=== PATIENT | male | born 1950 | race Caucasian/White ===

== ENCOUNTER 2024-03-14 16:44 | Emergency (ER) | payer MEDICARE, SELFPAY ==
[2024-03-14 17:00] VITALS: BP 164/98; PULSE 74; TEMP 36.6; O2SAT 97; BMI 38.6
--- NOTE | 2024-03-14 17:28 | CT_ITS ---
The [address] [address] Patient Name: GM MCDANIEL MRN: [id number] date: 1950 Sex: M Assigned Patient Location: ER Current Patient Location: ED.MAIN Accession/Order Number: [id number] Exam Date: 03/14/2024 17:42 Report Date: 03/14/2024 19:23 At the request of: JESSICA BLOUNT Procedure: CT abdomen pelvis wo con CT ABDOMEN/PELVIS WITHOUT IV CONTRAST. INDICATION: right flank pain hx of stones COMPARISON: There are no other studies available for comparison. TECHNIQUE: Contiguous axial images were obtained from the lung bases to the pelvic floor without intravenous or oral contrast. Coronal and sagittal reformations are provided. FINDINGS: LOWER LUNGS: Clear. LIVER/BILIARY TREE: No discrete lesion. No intrahepatic ductal dilatation. GALLBLADDER: Status post cholecystectomy.. CBD: Normal CBD. SPLEEN: Normal in size. PANCREAS: No appreciable peripancreatic fluid. No pancreatic ductal dilatation. No discrete lesion. ADRENALS: Normal. KIDNEYS: No hydronephrosis. There are nonobstructing bilateral renal stones measuring up to 5 mm. STOMACH AND BOWEL: Stomach is unremarkable. No dilated bowel loops. There is an inflamed diverticulum in the mid ascending colon. There is short segment thickening of the involved colon. No perforation or abscess. APPENDIX: Normal appendix. PERITONEAL CAVITY: No fluid. No fat stranding. ABDOMINAL WALL: No subcutaneous stranding. No subcutaneous fluid collection. There is a small umbilical hernia containing fat. LYMPH NODES: No mesenteric or retroperitoneal lymphadenopathy by CT criteria. ABDOMINAL AORTA: No aneurysm. PELVIS: No acute abnormality. MUSCULOSKELETAL: No acute osseous abnormality. CT/CT abdomen pelvis wo con IMPRESSION: 1. Acute uncomplicated diverticulitis of the right colon. 2. Bilateral nephrolithiasis. Electronically authenticated by: TREMAYNE HOLLOWAY Date: 03/14/2024 19:23
--- NOTE | 2024-03-14 17:28 | ECG_ITS ---
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
[2024-03-14 18:13] LABS: Alanine Aminotransferase 24 U/L (16-63); Albumin Globulin Ratio 0.7; Albumin Level 2.9 g/dL (3.4-5.0); Alkaline Phosphatase 69 U/L (46-116); Anion Gap 10.2; Aspartate Amino Transferase 16 U/L (15-37); BUN Creatinine Ratio 17.9; Bilirubin Total 2.4 mg/dL (0.2-1.0); Calcium 8.6 mg/dL (8.5-10.1); Carbon Dioxide 26.1 mmol/L (21.0-32.0); Chloride 98 mmol/L (98-107); Estimated GFR (African America >60 (>=60); Estimated GFR (Non-African Ame >60 (>=60); Glucose 102 mg/dL (74-106); Potassium 3.3 mmol/L (3.5-5.1); Sodium 131 mmol/L (136-145); Total Protein 6.9 g/dL (6.4-8.2); Troponin I High Sensitivity 4.7 pg/mL (4.0-76.1)
--- NOTE | 2024-03-14 18:24 | ED_ITS ---
HPI - Abdominal Pain General Chief Complaint: Abdominal Pain Stated Complaint: Flank Pain Right Side Time Seen by Provider: 03/14/24 17:15 Source: patient Mode of arrival: walk-in Limitations: no limitations History of Present Illness HPI narrative: The patient coming to us with a 4 days history of right flank pain, he mentioned that the flank pain radiate to his groin but mostly in the left side although his pain is in the right side He is not complaining any nausea vomiting or any burning with urination Patient give the pain 8 out of 10 and mentioned that he did not take anything for it And the pain comes and goes for the last 24 hours The patient mentioned that he have a history of kidney stone Related Data Home Medications ?Medication ?Instructions ?Recorded ?Confirmed hydrochlorothiazide 25 mg tablet 25 mg PO DAILY 03/14/24 03/14/24 irbesartan 300 mg tablet 300 mg PO DAILY 03/14/24 03/14/24 Allergies Allergy/AdvReac Type Severity Reaction Status Date / Time No Known Drug Allergies Allergy Verified 03/14/24 16:59 Review of Systems ROS Status of ROS 10 or more systems reviewed and unremark able except as noted in history and below Exam Narrative Exam Narrative: Nurses notes and vital signs reviewed and patient is not hypoxic. General: Well-appearing and in no apparent distress. Skin: Warm, dry, no pallor noted. No rash. Head: Normocephalic, atraumatic. Neck: Supple, non-tender. Eye: Pupils are equal, round and EOMI. No scleral icterus. Ears, Nose, Mouth, and Throat: TM are clear, no nasal mucosal hypertrophy. Oral mucosa is moist, no posterior oropharynx erythema, uvula is mid-line Cardiovascular: Regular Rate and Rhythm without murmur, gallop or rub. Respiratory: No accessory muscle use or respiratory distress. Lungs are clear to auscultation, no wheezing, rales or rhonchi Chest Wall: no tenderness Back: No midline thoracic or lumbar vertebral tenderness. No CVA tenderness Musculoskeletal: normal ROM, no calf or popliteal tenderness, no lower extremity edema/swelling GI: Abdomen is soft, non-distended. Normal bowel sounds. No masses appreciated. The patient main pain is mostly at the mid axillary line on the right side Neurological: A&O x4. No cranial nerve dysfunction observed. No truncal ataxia. Moves all extremities. Sensation intact. Psychiatric: Cooperative and interactive. Normal mood and affect. Constitutional Vital Signs, click to edit/add: Last Vital Signs Temp 97.8 F 03/14/24 17:00 Pulse 74 03/14/24 17:00 Resp 18 03/14/24 17:00 BP 164/98 H 03/14/24 17:00 Pulse Ox 97 03/14/24 17:00 O2 Del Method Room Air 03/14/24 17:00 Course Vital Signs Vital signs: Vital Signs Temperature 97.8 F 03/14/24 17:00 Pulse Rate 74 03/14/24 17:00 Respiratory Rate 18 03/14/24 17:00 Blood Pressure 164/98 H 03/14/24 17:00 Pulse Oximetry 97 03/14/24 17:00 Oxygen Delivery Method Room Air 03/14/24 17:00 Temperature 97.8 F 03/14/24 17:00 Pulse Rate 74 03/14/24 17:00 Respiratory Rate 18 03/14/24 17:00 Blood Pressure 164/98 H 03/14/24 17:00 Pulse Oximetry 97 03/14/24 17:00 Oxygen Delivery Method Room Air 03/14/24 17:00 MDM - Abdominal Pain MDM Narrative Medical decision making narrative: CBC chemistry as well as urinalysis and CAT scan ordered and the patient care awaiting the results of the above-mentioned workup will be transferred to Dr. Loza Lab Data Labs: Lab Results 03/14/24 Range/Units 17:38 Sodium 131 L (136-145) mmol/L Potassium 3.3 L (3.5-5.1) mmol/L Chloride 98 (98-107) mmol/L Carbon Dioxide 26.1 (21.0-32.0) mmol/L Anion Gap 10.2 BUN 15.0 (7.0-18.0) mg/dL Creatinine 0.84 (0.70-1.30) mg/dL Est GFR ( Amer) >60 (>=60) Est GFR (Non-Af Amer) >60 (>=60) BUN/Creatinine Ratio 17.9 Glucose 102 (74-106) mg/dL Calcium 8.6 (8.5-10.1) mg/dL Total Bilirubin 2.4 H (0.2-1.0) mg/dL AST 16 (15-37) U/L ALT 24 (16-63) U/L Alkaline Phosphatase 69 (46-116) U/L Troponin I High Sens 4.7 (4.0-76.1) pg/mL Total Protein 6.9 (6.4-8.2) g/dL Albumin 2.9 L (3.4-5.0) g/dL Globulin 4.0 g/dL Albumin/Globulin Ratio 0.7 Discharge Plan Discharge Patient Disposition: Still a Patient
[2024-03-14 19:17] VITALS: BP 128/70; PULSE 62; O2SAT 97
[2024-03-14 19:31] LABS: Bilirubin Urine NEGATIVE (NEGATIVE); Blood Urine NEGATIVE (NEGATIVE); Clarity Urine CLEAR (CLEAR); Color Urine YELLOW (YELLOW); Glucose Urine UA NEGATIVE (NEGATIVE); Ketones Urine TRACE mg/dL (NEGATIVE); Leukocyte Esterase Urine NEGATIVE (NEGATIVE); Nitrite Urine NEGATIVE (NEGATIVE); Protein Urine NEGATIVE (NEG/TRACE)
[2024-03-14 19:34] LABS: Urine Microscopic Indicated NO
--- NOTE | 2024-03-14 19:39 | PC.NURSE ---
Ambulates to and from [place] without difficulty. U/a obtained and taken to lab, urine dark yellow in color, denies any discomfort with urination.
--- NOTE | 2024-03-14 19:48 | ED_ITS ---
HPI - Abdominal Pain General Chief Complaint: Abdominal Pain Stated Complaint: Flank Pain Right Side Time Seen by Provider: 03/14/24 17:15 Source: patient Mode of arrival: walk-in Limitations: no limitations History of Present Illness HPI narrative: 73-year-old male presented to the emergency department and was initially seen by Dr. Hinkle. The patient was signed out to me after discussing the case with her thoroughly. Please see her full history and physical exam. Related Data Home Medications ?Medication ?Instructions ?Recorded ?Confirmed hydrochlorothiazide 25 mg tablet 25 mg PO DAILY 03/14/24 03/14/24 irbesartan 300 mg tablet 300 mg PO DAILY 03/14/24 03/14/24 Previous Rx's ?Medication ?Instructions ?Recorded ciprofloxacin HCl 500 mg tablet 500 mg PO Q12H #20 tabs 03/14/24 (Cipro) metronidazole 500 mg tablet 500 mg PO TID #30 tabs 03/14/24 Allergies Allergy/AdvReac Type Severity Reaction Status Date / Time No Known Drug Allergies Allergy Verified 03/14/24 16:59 Exam Constitutional Vital Signs, click to edit/add: Last Vital Signs Temp 97.8 F 03/14/24 17:00 Pulse 62 03/14/24 19:17 Resp 18 03/14/24 19:17 BP 128/70 03/14/24 19:17 Pulse Ox 97 03/14/24 19:17 O2 Del Method Room Air 03/14/24 19:17 Course Vital Signs Vital signs: Vital Signs Temperature 97.8 F 03/14/24 17:00 Pulse Rate 74 03/14/24 17:00 Respiratory Rate 18 03/14/24 17:00 Blood Pressure 164/98 H 03/14/24 17:00 Pulse Oximetry 97 03/14/24 17:00 Oxygen Delivery Method Room Air 03/14/24 17:00 Temperature 97.8 F 03/14/24 17:00 Pulse Rate 62 03/14/24 19:17 Respiratory Rate 18 03/14/24 19:17 Blood Pressure 128/70 03/14/24 19:17 Pulse Oximetry 97 03/14/24 19:17 Oxygen Delivery Method Room Air 03/14/24 19:17 MDM - Abdominal Pain MDM Narrative Medical decision making narrative: CT per radiologist shows right sided diverticulitis. He does not require admission to the hospital and has was started on Cipro and Flagyl here and prescribed same. Follow-up with his PCP in a week. Treatment diagnosis and follow-up were discussed with the patient Differential Diagnosis Differential diagnosis: Likely abdominal pain, acute appendicitis, calculus of kidney, constipation, diverticulitis and small bowel obstruction Lab Data Attestation: I reviewed the patient's lab results. Labs: Lab Results 03/14/24 03/14/24 Range/Units 17:38 19:15 Sodium 131 L (136-145) mmol/L Potassium 3.3 L (3.5-5.1) mmol/L Chloride 98 (98-107) mmol/L Carbon Dioxide 26.1 (21.0-32.0) mmol/L Anion Gap 10.2 BUN 15.0 (7.0-18.0) mg/dL Creatinine 0.84 (0.70-1.30) mg/dL Est GFR ( Amer) >60 (>=60) Est GFR (Non-Af Amer) >60 (>=60) BUN/Creatinine Ratio 17.9 Glucose 102 (74-106) mg/dL Calcium 8.6 (8.5-10.1) mg/dL Total Bilirubin 2.4 H (0.2-1.0) mg/dL AST 16 (15-37) U/L ALT 24 (16-63) U/L Alkaline Phosphatase 69 (46-116) U/L Troponin I High Sens 4.7 (4.0-76.1) pg/mL Total Protein 6.9 (6.4-8.2) g/dL Albumin 2.9 L (3.4-5.0) g/dL Globulin 4.0 g/dL Albumin/Globulin Ratio 0.7 Urine Color Yellow (YELLOW) Urine Clarity Clear (CLEAR) Urine pH 6.0 (5.0-9.0) Ur Specific [place] 1.020 (1.005-1.025) Urine Protein Negative (NEG/TRACE) mg/dL Urine Glucose (UA) Negative (NEGATIVE) mg/dL Urine Ketones Trace A (NEGATIVE) mg/dL Urine Occult Blood Negative (NEGATIVE) Urine Nitrite Negative (NEGATIVE) Urine Bilirubin Negative (NEGATIVE) Urine Urobilinogen 2.0 A (0.2-1.0) EU/dL Ur Leukocyte Esterase Negative (NEGATIVE) Imaging Data CT scan - abdomen: Radiologist's impression: ITS Impressions Abdomen/Pelvis CT 03/14/24 17:28 IMPRESSION: 1. Acute uncomplicated diverticulitis of the right colon. 2. Bilateral nephrolithiasis. Electronically authenticated by: TREMAYNE HOLLOWAY Date: 03/14/2024 19:23 Discharge Plan Discharge Stand Alone Forms: Portal Instructions Chief Complaint: Abdominal Pain Clinical Impression: Diverticulitis Patient Disposition: Home, Self-Care Time of Disposition Decision: 19:46 Condition: Good Mode of Transportation: Private Vehicle Prescriptions / Home Meds: New metronidazole 500 mg tablet 500 mg PO TID Qty: 30 0RF ciprofloxacin HCl [Cipro] 500 mg tablet 500 mg PO Q12H Qty: 20 0RF No Action irbesartan 300 mg tablet 300 mg PO DAILY hydrochlorothiazide 25 mg tablet 25 mg PO DAILY Print Language: Salvadorean Instructions: Diverticulitis (ED) Additional Instructions: Follow-up with Dr. Chopra in 1 week. Return to ED if symptoms worsen. Referrals: MAILE CHOPRA [Primary Care Provider] - 1 week
[2024-03-14] MEDS: METRONIDAZOLE 250 MG TABLET 500 MG PO (20:00)
[2024-03-14] MEDS: CIPROFLOXACIN HCL 500 MG TABLET PO (20:00)
== END 2024-03-14 20:04 | disposition home or self-care (01) ==
PROVIDERS: Emergency Medicine; Emergency Provider Emergency Medicine; PCP Internal Medicine
DX: K57.32 Diverticulitis of large intestine without perforation or abscess without bleeding (principal)
CPT/HCPCS: 36415; 74176; 80053; 81003; 84484; 93005; 99285

== ENCOUNTER 2024-08-30 10:38 | Outpatient (OUT) | payer MEDICARE, SELFPAY ==
[2024-08-30 11:08] LABS: Basophils Percent Auto 0.6 % (0.2-2.0); Eosinophils Absolute Auto 0.7 10^3/uL (0.0-0.7); Eosinophils Percent Auto 13.2 % (0.9-7.0); Hematocrit 47.3 % (42.0-54.0); Hemoglobin 16.8 g/dL (14.0-18.0); Immature Granulocytes Abs Auto 0.01 10^3/uL (0.00-0.03); Immature Granulocytes Pct Auto 0.2 % (0.0-0.5); Lymphocytes Absolute Auto 1.2 10^3/uL (1.2-3.8); Lymphocytes Percent Auto 21.7 % (20.5-60.0); Mean Corpuscular HGB Conc 35.5 g/dL (29.9-35.2); Mean Corpuscular Hemoglobin 34.6 pg (25.9-34.0); Mean Corpuscular Volume 97.5 fL (80.0-94.0); Mean Platelet Volume 10.8 fL (9.5-13.5); Monocytes Absolute Auto 0.5 10^3/uL (0.3-0.8); Monocytes Percent Auto 8.5 % (1.7-12.0); Neutrophils Percent Auto 55.8 % (43.0-75.0); Platelet Count 179 10^3/uL (150-450); Red Blood Count 4.85 10^6/uL (4.70-6.10); Red Cell Distribution Width 13.2 % (11.0-15.0); White Blood Count 5.3 10^3/uL (4.0-11.0)
[2024-08-30 11:25] LABS: Alanine Aminotransferase 35 U/L (16-63); Albumin Globulin Ratio 0.9; Albumin Level 3.5 g/dL (3.4-5.0); Alkaline Phosphatase 75 U/L (46-116); Anion Gap 12.9; Aspartate Amino Transferase 24 U/L (15-37); BUN Creatinine Ratio 13.2; Bilirubin Total 1.1 mg/dL (0.2-1.0); Calcium 8.5 mg/dL (8.5-10.1); Carbon Dioxide 28.2 mmol/L (21.0-32.0); Chloride 103 mmol/L (98-107); Chol HDL Ratio 2.5; Cholesterol 145 mg/dL (<=200); Estimated GFR (African America >60 (>=60 mL/min/1.73m^2); Estimated GFR (Non-African Ame >60 (>=60 mL/min/1.73m^2); Globulin 4.1 g/dL; Glucose 114 mg/dL (74-106); HDL Cholesterol 59 mg/dL (40-60); LDL Cholesterol Calculated 74.4 mg/dL; Potassium 4.1 mmol/L (3.5-5.1); Sodium 140 mmol/L (136-145); Total Protein 7.6 g/dL (6.4-8.2); Triglycerides 58 mg/dL (<=150); VLDL CHOLESTEROL 11.6 mg/dL
== END 2024-08-30 10:39 | disposition home or self-care (01) ==
LOC: LAB 10:42
PROVIDERS: PCP Internal Medicine; Visit Provider Physician Assistant
DX: Z00.00 Encounter for general adult medical examination without abnormal findings (principal); I10 Essential (primary) hypertension; E55.9 Vitamin D deficiency, unspecified
CPT/HCPCS: 36415; 80053; 80061; 82306; 85025

== ENCOUNTER 2024-09-26 22:57 | Emergency (ER) | payer MEDICARE, SELFPAY ==
[2024-09-26 23:04] VITALS: BP 186/85; PULSE 89; TEMP 36.4; O2SAT 95; BMI 39.1
--- NOTE | 2024-09-26 23:15 | ED_ITS ---
HPI HPI - General Adult General Chief complaint: Recheck/Abnormal Lab/Rx Stated complaint: POST OPERATIVE BLEEDING Time Seen by Provider: 09/26/24 23:02 Source: patient Mode of arrival: walk-in Limitations: no limitations History of Present Illness HPI narrative: This 74-year-old male who is not on blood thinners presents for evaluation of bleeding from an incision in his back. The patient recently had a biopsy done of a mass on his back that turned out to be malignant melanoma. He went for resection of the melanoma on his back and on the right side of his neck and they also took out lymph nodes from both axilla. He had some bleeding from the incision prior to being released that they used silver nitrate on but he is still having some ongoing bleeding from the incision site in his back. He denies any dizziness or shortness of breath. He has not had any fever. Related Data Home Medications ?Medication ?Instructions ?Recorded ?Confirmed hydrochlorothiazide 25 mg tablet 25 mg PO DAILY 03/14/24 03/14/24 irbesartan 300 mg tablet 300 mg PO DAILY 03/14/24 03/14/24 Previous Rx's ?Medication ?Instructions ?Recorded ciprofloxacin HCl 500 mg tablet 500 mg PO Q12H #20 tabs 03/14/24 (Cipro) metronidazole 500 mg tablet 500 mg PO TID #30 tabs 03/14/24 Allergies Allergy/AdvReac Type Severity Reaction Status Date / Time No Known Drug Allergies Allergy Verified 09/26/24 23:04 Opioid HPI Opioid Management Most Recent Opioid Data: No Data to Display Review of Systems ROS Status of ROS 10 or more systems reviewed and unremark able except as noted in history and below PFSH PFSH Social History Little interest or pleasure in doing things: not at all Feeling down, depressed, or hopeless: not at all Exam Narrative Exam Narrative: Vital signs and Nursing Notes reviewed: Patient is afebrile with a normal pulse, blood pressure is elevated at 186/85, he is not hypoxic with pulse ox of 95% on room air General: Awake, alert, oriented, no acute distress, lying comfortably on the stretcher HEENT: Normocephalic atraumatic, mucous membranes are moist and pink, eyes are clear, normal conjunctiva, vision is grossly intact Chest: Lungs are clear to auscultation with expiratory wheezes greatest in the right upper lobe CVS: Regular rate and rhythm S1-S2, no murmurs rubs or gallops, pulses are brisk and equal bilaterally ABD: Soft, nondistended, nontender, no rebound guarding or rigidity, bowel so unds are normal, no pulsatile masses appreciated Extremities: Moving all extremities, no lower extremity tenderness or swelling noted Skin: There is an approximately 10 cm incision closed with skin adhesive in the midline of the upper thoracic spine. There is some small venous oozing from one of the sites at the proximal portion of the incision. There is no arterial bleeding or purulent drainage. The patient also has incisions in both axilla and one in the soft tissue of the right upper shoulder area - the additional incisions are not bleeding or draining Neuro: No focal deficits Constitutional Vital Signs, click to edit/add: Last Vital Signs Temp 97.6 F 09/26/24 23:04 Pulse 89 09/26/24 23:04 Resp 16 09/26/24 23:04 BP 186/85 H 09/26/24 23:04 Pulse Ox 95 09/26/24 23:04 O2 Del Method Room Air 09/26/24 23:04 Course Vital Signs Vital signs: Vital Signs Temperature 97.6 F 09/26/24 23:04 Pulse Rate 89 09/26/24 23:04 Respiratory Rate 16 09/26/24 23:04 Blood Pressure 186/85 H 09/26/24 23:04 Pulse Oximetry 95 09/26/24 23:04 Oxygen Delivery Method Room Air 09/26/24 23:04 Temperature 97.6 F 09/26/24 23:04 Pulse Rate 89 09/26/24 23:04 Respiratory Rate 16 09/26/24 23:04 Blood Pressure 186/85 H 09/26/24 23:04 Pulse Oximetry 95 09/26/24 23:04 Oxygen Delivery Method Room Air 09/26/24 23:04 Medical Decision Making MDM Narrative Medical decision making narrative: This 74-year-old male who is not on blood thinners presents for evaluation of bleeding from an upper thoracic incision that was performed earlier today at [facility] for resection of a malignant melanoma. The patient also had a resection of a mass on his right upper shoulder area and either lymph node biopsy or dissection. He presents for evaluation of some venous bleeding from the proximal portion of the thoracic incision. The incisions were closed with Dermabond. There was some mild venous bleeding from the proximal aspect of the incision. There was no sign of any dehiscence or infection. The area was cleaned with saline and hydrogen peroxide and dried and a long piece of Gelfoam was applied topically over the incision site and an ABD pad was applied topically over the Gelfoam. He was reevaluated in 30 minutes. The bleeding has resolved but there is some blood on the Gelfoam and ABD pad. The dressing was reapplied topically and the was given an additional ABD pad to use tomorrow if needed. He was medicated with a dose of [place] as he was discharged home with prescription for tramadol which is not helping his pain. He will be discharged home with 2 additional [place] and a prescription for [place], Zofran and Colace to use as needed for ongoing pain and to prevent constipation from the pain medications. Discharge Plan Discharge Chief Complaint: Recheck/Abnormal Lab/Rx Clinical Impression: Postoperative bleeding from incision Patient Disposition: Home, Self-Care Time of Disposition Decision: 00:08 Condition: Good Prescriptions / Home Meds: No Action irbesartan 300 mg tablet 300 mg PO DAILY hydrochlorothiazide 25 mg tablet 25 mg PO DAILY metronidazole 500 mg tablet 500 mg PO TID Qty: 30 0RF ciprofloxacin HCl [Cipro] 500 mg tablet 500 mg PO Q12H Qty: 20 0RF Print Language: Yoruba Instructions: Skin Adhesive Care (ED) Additional Instructions: You can reapply the top dressing tomorrow if needed for ongoing bleeding but leave the foam dressing that is in place against the incision in place for another 24 hours. Return to the emergency department as needed for ongoing or worsening bleeding, fevers chills additional drainage from the incision sites or any concerns. You can use [place] for pain but do not take it in addition to the tramadol. The pharmacist may not fill your prescription for [place] however you can discussed with him that the tramadol is not helping with your pain. It may help to take the tramadol prescription with you to the pharmacy when you fill your prescription for [place]. Referrals: MAILE CHOPRA [Primary Care Provider] - 1 week Procedures ED Procedure Instructions Procedures Procedures: Procedure note: The incision in the right upper thoracic region that had venous oozing was cleaned with normal saline and hydrogen peroxide. I was unable to express any additional bleeding besides the small amount of dark blood from the upper portion of the incision. A long piece of Gelfoam was placed over the incision and an ABD pad was placed over the Gelfoam and a pressure dressing adaption. Patient was asked to sit back against the incision on a pillow. He was medicated with a dose of [place] and Zofran for the pain and on reevaluation........................
[2024-09-26] MEDS: SURGIFOAM GEL SPONGE SIZE 100 1 EACH TOPICAL (23:21)
[2024-09-26] MEDS: HYDROCODONE/ACET 5-325 MG TABLET 1 TAB PO (23:33)
[2024-09-26] MEDS: ONDANSETRON 4 MG RAPDIS TABLET SL (23:33)
[2024-09-27] MEDS: HYDROCODONE/ACET 5-325 MG TABLET 2 TAB PO (00:21)
[2024-09-27 00:23] VITALS: BP 157/88
== END 2024-09-27 00:30 | disposition home or self-care (01) ==
PROVIDERS: Emergency Provider Emergency Medicine; PCP Internal Medicine
DX: L76.21 Postprocedural hemorrhage of skin and subcutaneous tissue following a dermatologic procedure (principal); C43.4 Malignant melanoma of scalp and neck; C43.59 Malignant melanoma of other part of trunk
CPT/HCPCS: 99284; Q0162

== ENCOUNTER 2024-11-15 10:44 | Day surgery (SDC) | payer MEDICARE, SELFPAY ==
[2024-11-15 10:52] VITALS: BP 140/79; PULSE 82; TEMP 36.3; O2SAT 95
[2024-11-15] MEDS: GENTAMICIN SULFATE 80 MG/2 ML VIAL INJ (11:10)
[2024-11-15] MEDS: LIDOCAINE HCL 1% 100 MG/10 ML MDV INJ (11:30)
[2024-11-15] MEDS: LIDOCAINE 2% JELLY 20 ML UR (11:31)
--- NOTE | 2024-11-15 11:47 | PM.URSON ---
Urology Surgery Operative Note Operative Note Procedure Date: 11/15/24 Time Out Performed: yes Pre-op Diagnosis: Elevated PSA and prostate lesion by MRI Post-op Diagnosis: same as pre-op Procedures performed: Prostate MRI fusion biopsies Anesthesia: local and other (Gerardo prostatic block with 1% plain lidocaine) Primary Surgeon: Toney Kan Complications: None Estimated blood loss (mL): 10 Findings: Small prostate Specimens: 5 biopsies from the area of interest. 6 mapped out biopsies from each side Indications for Procedures: This gentleman has an elevated PSA of 5.9. His prostate MRI reveals a PI-RADS 4 lesion. He now presents for MRI fusion biopsies of the prostate. He has signed an informed consent after risks were explained. Some of these risks include bleeding, infection, urosepsis and anesthesia to name a few. Detailed description of Procedure: The patient was kept on the [place] bed and brought into the operating room. He was rotated in the left lateral decubitus position. Timeout was done by all parties in the room. Betadine soaked sponges were passed per rectum and is rectum was swabbed. 2% lidocaine gel was passed per rectum. The ultrasound probe from the [employer] system was passed per rectum. Segmentation was then done so as to superimpose the MRI images onto the live ultrasound. A Gerardo prostatic block was done with 1% plain lidocaine. I identified the area of interest and lined it up. I then took 5 biopsies from this area and sent them separately labeled area of interest. I then started the mapped out biopsies. 6 biopsies were taken from the left side and 6 biopsies were taken from the right side in the standard fashion. These were all sent separately. The probe was then removed. He was then transferred to PACU in stable condition.
--- NOTE | 2024-11-15 12:09 | PC.NURSE ---
1205- Patient upto br and voids moderate amount of blood tinged urine without difficulty
== END 2024-11-15 12:08 | disposition home or self-care (01) ==
LOC: SURGOUT 10:46
PROVIDERS: PCP Internal Medicine; Visit Provider Urology
PROC: (CPT 55700; principal; 2024-11-15 11:15)
DX: C61 Malignant neoplasm of prostate (principal); R97.20 Elevated prostate specific antigen [PSA]; N42.9 Disorder of prostate, unspecified; I10 Essential (primary) hypertension; N40.1 Benign prostatic hyperplasia with lower urinary tract symptoms; Z85.820 Personal history of malignant melanoma of skin; N52.9 Male erectile dysfunction, unspecified
CPT/HCPCS: 55700; J1580

== ENCOUNTER 2025-02-18 12:16 | Emergency (ER) | payer MEDICARE, SELFPAY ==
--- OUTSIDE RECORDS SUMMARY | 2025-02-06 14:00 | XMS_ITS | Encounter Summary ---
Author Organization [facility] Address [address] [place], [place] [id number] Care Team Providers Care Sow Farm Barn Technician Name Role Phone Toney Kan MD Unavailable Vaughn MORAN MD, Yimi Arellano Primary Care Provider [phone] Source Comments In the event this information is protected by the Federal Confidentiality of Alcohol and Drug AbusePatient Records regulations: The Federal rules restrict any use of the information to criminally investigate or prosecute any alcohol or drug abuse patient.[facility] Reason for Visit * Reason Comments Prostate Cancer Treatment visit Radiotherapy On-treatment Visit Encounter Details Date Type Department Care Team (Late st Contact Info) Description 02/06/2025 2:00 PM EDT Office Visit Radiation Oncology [facility] [place] [address] Tip Hess MD [address] [facility] [place] [address] [place], [place] [address] Malignant neoplasm of prostate (HCC) (Primary Dx) Social History Tobacco Use Types Packs/Day Years Used Date Smoking Tobacco: Never Smokeless Tobacco: Never Tobacco Cessation:Counseling Given: Not Answered Alcohol Use Standard Drinks/Week Comments Yes 0 (1 standard drink = 0.6 oz pur e alcohol) daily 6-7 [facility] Area Deprivation Index Answer Date Joseph rded National Score (1-100), lower number is lower ri sk 79 11/30/2024 State Score (1-10), lower number is lower risk 7 11/30/2024 Data from: https://www.neighborhoodatlas.medicine.[facility]/. Last address used for calculation [address] 11/30/2024 Sex and Gender Information Value Date Recorded Sex Assigned at Not on file Legal Sex Male 8:49 AM EST Gender Identity Not on file Sexual Orientation Not on file documented as of this encounter Last Filed Vital Signs Vital Sign Reading Time Taken Comments Blood Pressure 147/87 02/06/2025 1:33 PM EDT Pulse 64 02/06/2025 1:33 PM EDT Temperature 36.2 C (97.1 F) 02/06/2025 1:33 PM EDT Respiratory Rate 18 02/06/2025 1:33 PM EDT Oxygen Saturation 96% 02/06/2025 1:33 PM EDT Inhaled Oxygen Concentration - - Weight 107.2 kg (236 lb 5.3 oz) 02/06/2025 1:33 PM EDT Height 165.1 cm (5' 5 ) 02/06/2025 1:33 PM EDT Body Mass Index 39.33 02/06/2025 1:33 PM EDT documented in this encounter Progress Notes * Tip Hess MD - 02/06/2025 1:40 PM EDT Radiation Oncology - On Treatment Review (OTR) Note PATIENT NAME: Nabor Horner PATIENT DIAGNOSIS: Prostate adenocarcinoma, initial PSA 5.9, biopsy Baker score 3 + 4 = 7 (grade group 2), clinical stage T2a, N0, M0, stage IIB [T1-T2, N0, M0, PSA <20, GG 2] (AJCC 8th ed.), s/p biopsy. NCCN Risk Group: Favorable Intermediate Risk Group COURSE: definitive AREA TREATED: ProstateSV CURRENT DOSE: 6000 cGy in 24 fx PLANNED DOSE: 7000 cGy in 28 fx SUBJECTIVE: Doing well. Mild increased urinary urgency. EXAM: 02/06/25 1333 BP: 147/87 BP Site: Left Arm BP Position: Sitting BP Cuff Size: Regular Adult Pulse: 64 Resp: 18 Temp: 36.2 ??C (97.1 ??F) TempSrc: Temporal SpO2: 96% Weight: 107.2 kg (236 lb 5.3 oz) Height: 165.1 cm (5' 5 ) KPS: 100 General Appearance: Alert and oriented. No acute distress. Radiation dermatitis: No IMAGING/LAB RESULTS: Hemoglobin (g/dL) Date Value 01/12/2025 16.3 Hematocrit (%) Date Value 01/12/2025 46.0 WBC (k/uL) Date Value 01/12/2025 5.91 Platelet Count (k/uL) Date Value 01/12/2025 157 Treatment chart checked: Yes Patient treatment site reviewed and verified:Yes Port films reviewed and current:Yes Medications started: None ASSESSMENT/PLAN: Clinically stable. Toxicity within expected parameters. Continue radiation treatment as planned. He will finish on Thursday. Follow-up care discussed. Tip Hess MD documented in this encounter Plan of Treatment Upcoming Encounters Date Type Department Care Team (Late st Contact Info) Description 03/07/2025 2:15 PM EDT Office Visit Radiation Oncology [address] [facility] [place] [address] Tip Hess MD [address] [place] [address] [address] [place], [place] [address] 3-4 week Final radiation follow up with PSA documented as of this encounter Visit Diagnoses Diagnosis Malignant neoplasm of prostate (HCC)- Primary Malignant neoplasm of prostate documented in this encounter Care Teams Sow Farm Barn Technician Relationship Specialty Start Date End Date Yimi Mendes II, MD [address] [place] [address] PCP - General Internal Medicine 11/28/24 Toney Kan MD [address] [place] [address] Urology 11/28/24 documented as of this encounter
--- OUTSIDE RECORDS SUMMARY | 2025-02-10 14:00 | XMS_ITS | Encounter Summary ---
Author Organization [facility] Address [address] [place], [place] [address] Care Team Providers Care Wireline Supervisor Name Role Phone Toney Kan MD Unavailable [phone] Vaughn MORAN MD, Yimi Arellano Primary Care Provider [phone] Source Comments In the event this information is protected by the Federal Confidentiality of Alcohol and Drug AbusePatient Records regulations: The Federal rules restrict any use of the information to criminally investigate or prosecute any alcohol or drug abuse patient.[facility] Encounter Details Date Type Department Care Team (Late st Contact Info) Description 02/10/2025 2:00 PM EDT Office Visit Radiation Oncology [address] [place] [address] [place] [address] Tip Hess MD [address] [place] [address] [place] [address] Malignant neoplasm of prostate (HCC) (Primary Dx) Social History Tobacco Use Types Packs/Day Years Used Date Smoking Tobacco: Never Smokeless Tobacco: Never Alcohol Use Standard Drinks/Week Comments Yes 0 (1 standard drink = 0.6 oz pur e alcohol) daily 6-7 beers Area Deprivation Index Answer Date Joseph rded National Score (1-100), lower number is lower ri sk 79 11/30/2024 State Score (1-10), lower number is lower risk 7 11/30/2024 Data from: https://www.neighborhoodatlas.[facility]/. Last address used for calculation [address] 11/30/2024 Sex and Gender Information Value Date Recorded Sex Assigned at Not on file Legal Sex Male 8:49 AM EST Gender Identity Not on file Sexual Orientation Not on file documented as of this encounter Progress Notes * Tip Hess MD - 02/10/2025 2:03 PM EDT Radiation Oncology - On Treatment Review (OTR) Note PATIENT NAME: Nabor Horner PATIENT DIAGNOSIS: Prostate adenocarcinoma, initial PSA 5.9, biopsy [place] score 3 + 4 = 7 (grade group 2), clinical stage T2a, N0, M0, stage IIB [T1-T2, N0, M0, PSA <20, GG 2] (AJCC 8th ed.), s/p biopsy. NCCN Risk Group: Favorable Intermediate Risk Group COURSE: definitive AREA TREATED: ProstateSV CURRENT DOSE: 7000 cGy in 28 fx PLANNED DOSE: 7000 cGy in 28 fx SUBJECTIVE: Doing well. Stable urinary issues. EXAM: KPS: 100 General Appearance: Alert and oriented. [...] PM EDT Office Visit Radiation Oncology [address] [facility] [address] [place] [address] Tip Hess MD [address] [facility] [address] [place] [address] 3-4 week Final radiation follow up with PSA documented as of this encounter Visit Diagnoses Diagnosis Malignant neoplasm of prostate (HCC)- Primary Malignant neoplasm of prostate documented in this encounter Care Teams Wireline Supervisor Relationship Specialty Start Date End Date Yimi Mendes II, MD [address] [facility] [address] [place] [address] PCP - General Internal Medicine 11/28/24 Toney Kan MD [address] [place] [place] [address] Urology 11/28/24 documented as of this encounter
--- OUTSIDE RECORDS SUMMARY | 2025-02-13 13:00 | XMS_ITS | Encounter Summary ---
Author Organization [facility] Address [address] [facility] [place] [address] Care Team Providers Care Program Arranger Name Role Phone Yimi Mendes MD Primary Care Provider [phone] Encounter Details Date Type Department Care Team (Late st Contact Info) Description 02/13/2025 1:00 PM EDT Office Visit [facility] [place] [facility] [address] [facility] [address] [place] [id number] Heavenly Salguero PA [address] [facility] 110 [place] [address] Benign essential hypertension (Primary Dx); Morbid (severe) obesity due to excess calories ([facility]); BMI 39.0-39.9,adult Social History Tobacco Use Types Packs/Day Years Used Date Smoking Tobacco: Never Smokeless Tobacco: Never Alcohol Use Standard Drinks/Week Comments Not Currently 0 (1 standard drink = 0.6 oz pur e alcohol) PHQ-2 Answer Date Recorded Patient Health Questionnaire-2 Score 0 02/13/2025 Sex and Gender Information Value Date Recorded Sex Assigned at Male 01/19/2023 12:54 PM EDT Legal Sex Male 8:34 PM EDT Gender Identity Male 01/19/2023 12:54 PM EDT Sexual Orientation Not on file documented as of this encounter Last Filed Vital Signs Vital Sign Reading Time Taken Comments Blood Pressure 112/72 02/13/2025 1:01 PM EDT Pulse 64 02/13/2025 1:01 PM EDT Temperature - - Respiratory Rate 20 02/13/2025 1:01 PM EDT Oxygen Saturation 96% 02/13/2025 1:01 PM EDT Inhaled Oxygen Concentration - - Weight 109 kg (239 lb 9.6 oz) 02/13/2025 1:01 PM EDT Height 165.1 cm (5' 5 ) 02/13/2025 1:01 PM EDT Body Mass Index 39.87 02/13/2025 1:01 PM EDT documented in this encounter Functional Status * Over the past 2 weeks, how often have you been bothered by any of the following problems? Question Answer Date of Assessment Author Little interest or pleasure in doing things Not at all 02/13/2025 12:58 PM EDT Misty Ashley L PN Feeling down, depressed, or hopeless Not at all 02/13/2025 12:58 PM EDT Misty Ashley L PN Patient Health Questionnaire -2 Score 0 02/13/2025 12:58 PM EDT Misty Ashley L PN documented as of this encounter Progress Notes * KOSTA Burrows - 02/13/2025 1:00 PM EDT Images from the original note were not included. Subjective Patient ID: Nabor Horner is a 74 y.o. male who presents for hypertension. Nabor is present today for follow up hypertension. Denies chest pain, SOB, blurry vision, headaches. Does check BP's at home and running on average 160's/80's. Uses an upper arm cuff. Currently on Amlodipine, hydrochlorothiazide, and Irbesartan. Finished radiation on Thursday. Follows up with them next month. Over the past 2 weeks, how often have you been bothered by any of the following problems? Little interest or pleasure in doing things: Not at all Feeling down, depressed, or hopeless: Not at all Patient Health Questionnaire-2 Score: 0 Current Outpatient Medications on File Prior to Visit Medication Sig Dispense Refill amLODIPine (Norvasc) 10 MG tablet Take 10 mg by mouth in the morning. hydroCHLOROthiazide (HYDRODiuril) 25 MG tablet Take 1 tablet (25 mg) by mouth in the morning. 90 tablet 3 irbesartan (Avapro) 300 MG tablet Take 1 tablet (300 mg) by mouth Daily 90 tablet 3 tamsulosin (Flomax) 0.4 MG 24 hr capsule Take 0.4 mg by mouth Daily No current facility-administered medications on file prior to visit. I have reviewed and reconciled the history and medication list with the patient today. Allergies Allergen Reactions Cat Dander Shortness of breath Barrington Inhibitors Other Reaction(s): cough Social History Tobacco Use Smoking status: Never Smokeless tobacco: Never Vaping Use Vaping status: Never Used Substance Use Topics Alcohol use: Not Currently Drug use: Never Family History Problem Relation Name Age of Onset Cancer Mother Heart disease Mother Cancer Father Heart disease Father Melanoma Neg Hx Past Medical History: Diagnosis Date Basal cell carcinoma Blepharitis of upper and lower eyelids of both eyes 01/26/2023 Cataract Diverticulosis Hiatal hernia Hypertension Kidney stones Melanoma (HCC) 07/2024 mid upper back Prostate cancer (HCC) 10/2024 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 Smoking Status Never BSA 2.24 m?? Review of Systems Constitutional: Negative for chills, fatigue and fever. Respiratory: Negative for cough, shortness of breath and wheezing. Cardiovascular: Negative for chest pain, palpitations and leg swelling. Gastrointestinal: Negative for abdominal pain, constipation, diarrhea, nausea and vomiting. Skin: Negative for rash. Objective Physical Exam Constitutional: General: He is not in acute distress. Appearance: He is obese. HENT: Head: Normocephalic and atraumatic. Eyes: General: No scleral icterus. Cardiovascular: Rate and Rhythm: Normal rate and regular rhythm. Heart sounds: No murmur heard. Pulmonary: Effort: Pulmonary effort is normal. No respiratory distress. Breath sounds: Normal breath sounds. No wheezing, rhonchi or rales. Musculoskeletal: General: No swelling. Skin: General: Skin is warm and dry. Neurological: General: No focal deficit present. Mental Status: He is alert and oriented to person, place, and time. Psychiatric: Mood and Affect: Mood normal. Behavior: Behavior normal. Assessment/Plan Diagnoses and all orders for this visit: Benign essential hypertension Patient's blood pressure is currently well controlled according to the reading in our office today.Encouraged him to bring his BP cuff into the office so we can make sure the readings are consistent. Continue with current medications and I will continue to monitor. Goal BP remains less than 130/80. Morbid (severe) obesity due to excess calories ([facility]) Encouraged portion control, decrease simple sugars and carbohydrates, gradually increase activity level. Aim for gradual steady weight loss. BMI 39.0-39.9,adult See above. Follow up in about 6 months (around 08/17/2025) for Medicare Wellness Visit. documented in this encounter Plan of Treatment Upcoming Encounters Date Type Department Care Team (Late st Contact Info) Description 03/09/2025 10:30 AM EDT Office Visit [facility] [address] [place] [phone] Elysia Yee PA [address] [place] [address] 08/16/2025 1:00 PM EST Office Visit [facility] [place] [facility] [address] [place] [address] Heavenly Salguero PA [address] [address] [place] [address] 08/25/2025 1:00 PM EST Office Visit [facility] [address] [place] [phone] Elysia Yee PA [address] [place] [address] documented as of this encounter Visit Diagnoses Diagnosis Benign essential hypertension- Primary Essential hypertension, benign Morbid (severe) obesity due to excess calories ([facility]) BMI 39.0-39.9,adult documented in this encounter Additional Health Concerns Assessment Noted Time PHQ-9 Depression Total Score: 0 08/16/19 25 1:00 PM EST documented as of this encounter Care Teams Program Arranger Relationship Specialty Start Date End Date Yimi Mendes MD [address] [place] [address] [place] [address] PCP - General Internal Medicine 01/26/23 documented as of this encounter
[2025-02-18 12:22] VITALS: BP 129/88; PULSE 98; TEMP 36.9; O2SAT 94; BMI 39.1
--- OUTSIDE RECORDS SUMMARY | 2025-02-18 12:23 | XMS_ITS | Encounter Summary ---
Author Organization [facility] Address [address] [place], [place] [address] Care Team Providers Care Environmental Field Technician Name Role Phone Toney Kan MD Unavailable [phone] Vaughn MORAN MD, Yimi Arellano Primary Care Provider [phone] Source Comments In the event this information is protected by the Federal Confidentiality of Alcohol and Drug AbusePatient Records regulations: The Federal rules restrict any use of the information to criminally investigate or prosecute any alcohol or drug abuse patient.[facility] Encounter Details Date Type Department Care Team (Latest Contact Info) Description 02/06/2025 Travel Social History Tobacco Use Types Packs/Day Years [...] is lower risk 7 11/30/2024 Data from: https://www.neighborhoodatlas.medicine.[facility].edu/. Last address used for calculation [address] [place] [address] 11/30/2024 Sex and Gender Information Value Date Recorded Sex Assigned at Not on file Legal Sex Male 8:49 AM EST Gender Identity Not on file Sexual Orientation Not on file documented as of this encounter Plan of Treatment Upcoming Encounters Date Type Department Care Team (Late st Contact Info) Description 03/07/2025 2:15 PM EDT Office Visit Radiation Oncology [address] [facility] [address] [place] [address] Tip Hess MD [address] [place] [address] [address] [place] [address] 3-4 week Final radiation follow up with PSA documented as of this encounter Visit Diagnoses Not on filedocumented in this encounter Care Teams Environmental Field Technician Relationship Specialty Start Date End Date Yimi Mendes II, MD [address] [place] [address] PCP - General Internal Medicine 11/28/24 Toney Kan MD [address] [place] [address] Urology 11/28/24 documented as of this encounter
--- OUTSIDE RECORDS SUMMARY | 2025-02-18 12:23 | XMS_ITS | Encounter Summary ---
Author Organization [facility] Address [address] [place], [place] [address] Care Team Providers Care Clinical Research Nurse Coordinator Name Role Phone Toney Kan MD Unavailable [phone] Vaughn MORAN MD, Yimi Arellano Primary Care Provider [phone] Source Comments In the event this information is protected by the Federal Confidentiality of Alcohol and Drug AbusePatient Records regulations: The Federal rules restrict any use of the information to criminally investigate or prosecute any alcohol or drug abuse patient.[facility] Reason for Visit * Reason Comments Lab Orders Future Appointment Encounter Details Date Type Department Care Team (Late st Contact Info) Description 02/06/2025 Telephone Radiation Oncology [address] [place] [address] [address] [place] [address] Tip Hess MD [address] [place] [address] [address] [place] [address] Lab Orders; Future Appointment Social History Tobacco Use Types Packs/Day Years [...] is lower risk 7 11/30/2024 Data from: https://www.neighborhoodatlas.medicine.[facility].edu/. Last address used for calculation [address] 11/30/2024 Sex and Gender Information Value Date Recorded Sex Assigned at Not on file Legal Sex Male 8:49 AM EST Gender Identity Not on file Sexual Orientation Not on file documented as of this encounter Miscellaneous Notes * Telephone Encounter - Julia Atkinson, RN - 02/06/2025 2:17 PM EDT Please sign pended PSA order for next visit. Julia Atkinson RN documented in this encounter Plan of Treatment Upcoming Encounters Date Type Department Care Team (Late st Contact Info) Description 03/07/2025 2:15 PM EDT Office Visit Radiation Oncology [address] [facility] [address] [place] [address] Tip Hess MD [address] [facility] [address] [place] [address] 3-4 week Final radiation follow up with PSA Scheduled Orders Name Type Priority Associated Diagnoses Orde r Schedule PROSTATE-SPECIFIC ANTIGEN DIAGNOSTIC Lab Routine Malignant neoplasm of prostate (HCC) Expected: 03/09/2025 (Approximate), Expires: 06/08/2025 documented as of this encounter Visit Diagnoses Diagnosis Malignant neoplasm of prostate (HCC)- Primary Malignant neoplasm of prostate documented in this encounter Care Teams Clinical Research Nurse Coordinator Relationship Specialty Start Date End Date Yimi Mendes II, MD [address] [place] [address] PCP - General Internal Medicine 11/28/24 Toney Kan MD [address] [place] [address] Urology 11/28/24 documented as of this encounter
--- OUTSIDE RECORDS SUMMARY | 2025-02-18 12:23 | XMS_ITS | Clinical Summary ---
Author Organization [facility] Address [address] [place], [place] [address] Care Team Providers Care Integration Engineer Name Role Phone Toney Kan MD Unavailable [phone] Vaughn MORAN MD, Yimi Arellano Primary Care Provider [phone] Allergies No known active allergies Medications hydroCHLOROthiaz max 25 mg tablet Take 25 mg by mouth every morning. Active irbesartan (AVAPRO) 300 mg tablet Take 300 mg by mouth once daily. Active tamsulosin (FLOMAX) 0.4 mg Take 0.4 mg by mouth once daily. Active Encounters Date Type Department Care Team Description 02/10/2025 2:00 PM EDT Office Visit Radiation Oncology [address] [place] [address] [address] [place] [address] Tip Hess MD Malignant neoplasm of prostate (HCC) (Primary Dx) 02/06/2025 2:00 PM EDT Office Visit Radiation Oncology [address] [place] [address] [address] [place] [address] Tip Hess MD Malignant neoplasm of prostate (HCC) (Primary Dx) 02/06/2025 Telephone Radiation Oncology [address] [place] [address] [address] [place] [address] Tip Hess MD Lab Orders; Future Appointment 02/06/2025 Travel 01/30/2025 2:00 PM EDT Office Visit Radiation Oncology [address] [place] [address] [address] [place] [address] Tip Hess MD Malignant neoplasm of prostate (HCC) (Primary Dx) 01/30/2025 Travel 01/23/2025 2:00 PM EDT Office Visit Radiation Oncology [address] [place] [place] [place] [address] Flaquiot Castanon MD Malignant neoplasm of prostate (HCC) (Primary Dx) 01/16/2025 2:00 PM EDT Office Visit Radiation Oncology [address] [place] [place] [place] [address] Tip Hess MD Malignant neoplasm of prostate (HCC) (Primary Dx) 01/12/2025 2:00 PM EDT Office Visit Radiation Oncology [address] [place] [place] [place] [address] Malignant neoplasm of prostate (HCC) 01/09/2025 1:45 PM EDT Office Visit Radiation Oncology [address] [place] [place] [place] [address] Tip Hess MD Malignant neoplasm of prostate (HCC) (Primary Dx) 01/09/2025 Travel 01/05/2025 Telephone Radiation Oncology [address] [place] [place] [place] [address] Tip Hess MD Orders 01/03/2025 11:30 AM EDT Office Visit Radiation Oncology [address] [place] [place] [place] [address] Tip Hess MD Malignant neoplasm of prostate (HCC) (Primary Dx) 12/27/2024 8:30 AM EDT Office Visit Radiation Oncology [address] [place] [place] [place] [address] Tip Hess MD Malignant neoplasm of prostate (HCC) (Primary Dx) 12/27/2024 8:00 AM EDT Office Visit Radiation Oncology [address] [place] [place] [place] [address] Tip Hess MD Malignant neoplasm of prostate (HCC) (Primary Dx) 12/27/2024 Radiation Oncology Note Radiation Oncology [address] [place] [place] [place] [address] Tip Hess MD Treatment Planning 12/27/2024 Radiation Oncology Note Radiation Oncology [address] [place] [place] [place] [address] Tip Hess MD Simulation Note 12/26/2024 Telephone Radiation Oncology [address] [place] [address] [address] [place] [address] Tip Hess MD Appointment 11/30/2024 1:00 PM EDT Office Visit Radiation Oncology [address] [place] [place] [place] [address] Tip Hess MD Malignant neoplasm of prostate (HCC) (Primary Dx) 11/30/2024 Education Radiation Oncology [address] [place] [address] [address] [place] [address] Sherly Caro RN Patient Education 11/30/2024 Telephone Radiation Oncology [address] [place] [address] [address] [place] [address] Tip Hess MD Appointment 11/30/2024 Travel from Last 3 Months Immunizations Immunization Administration Dates Next Due influenza (HD-IIV4) vaccine, age 65+ yr, high dose, quadrivalent, PF (FLUZONE HIGH-DOSE) 05/04/2023,05/01/2022 Family History Medical History Relation Comments Colon Cancer Father Lung Cancer Maternal Grandfather Cancer Maternal Grandmother Colon Cancer Mother Relation Status Comments Father Maternal Grandfather Maternal Grandmother Mother Social History Tobacco Use Types Packs/Day Years Used Date Smoking Tobacco: Never Smokeless Tobacco: Never Tobacco Cessation:Counseling Given: Not Answered Alcohol Use Standard Drinks/Week Comments Yes 0 (1 standard drink = 0.6 oz pur e alcohol) daily 6-7 [facility] Area Deprivation Index Answer Date Joseph rded National Score (1-100), lower number is lower ri sk 79 11/30/2024 State Score (1-10), lower number is lower risk 7 11/30/2024 Data from: https://www.neighborhoodatlas.medicine.[facility].edu/. Last address used for calculation [address] 11/30/2024 Sex and Gender Information Value Date Recorded Sex Assigned at Not on file Legal Sex Male 8:49 AM EST Gender Identity Not on file Sexual Orientation Not on file Last Filed Vital Signs Vital Sign Reading Time Taken Comments Blood Pressure 147/87 02/06/2025 1:33 PM EDT Pulse 64 02/06/2025 1:33 PM EDT Temperature 36.2 C (97.1 F) 02/06/2025 1:33 PM EDT Respiratory Rate 18 02/06/2025 1:33 PM EDT Oxygen Saturation 96% 02/06/2025 1: 33 PM EDT Inhaled Oxygen Concentration - - Weight 107.2 kg (236 lb 5.3 oz) 02/06/2025 1:33 PM EDT Height 165.1 cm (5' 5 ) 02/06/2025 1:33 PM EDT Body Mass Index 39.33 02/06/2025 1:33 PM EDT Plan of Treatment Upcoming Encounters Date Type Department Care Team (Late st Contact Info) Description 03/07/2025 2:15 PM EDT Office Visit Radiation Oncology [address] [place] [place] [place] [address] Tip Hess MD [address] [place] [place] [place] [address] 3-4 week Final radiation follow up with PSA Health Maintenance Due Date Last Done Comments Anxiety Screening 1969 Depression Screening 1969 Hepatitis C Screening 1969 DTaP,Tdap,Td Vaccine (1 - Tdap) [address] Colonography 1996 Cologuard (FIT-DNA) 1996 Colonoscopy 1996 Colorectal Cancer Screening 1996 Fecal Occult Blood 1996 Sigmoidoscopy 1996 Pneumococcal Vaccine: 50+ (1 of 1 - PCV) 2001 Shingrix Vaccine (1 of 2) 2001 Diabetes Screening 11/17/2021 11/17/2018 Advance Directive Discussion 07/27/2024 Medicare Advantage Annual Wellness Visit 07/27/2024 Influenza Vaccine (#1) 2025 05/04/2023, 2021 RSV Vaccine (1 - 1-dose 75+ series) 2026 Procedures Procedure Name Priority Date/Time Associated Diagnosis Comments CBC + DIFF Routine 01/12/2025 1:22 PM EDT Malignant neoplasm of prostate (HCC) EXTERNAL LAB 12/16/2024 9:16 AM EDT EXTERNAL PROCEDURE 11/28/2024 1: 57 PM EDT EXTERNAL LAB 11/28/2024 1:57 PM EDT EXTERNAL IMAGING 11/28/2024 1:57 PM EDT EXTERNAL LAB 11/28/2024 1:57 PM EDT EXTERNAL IMAGING 11/28/2024 1:57 PM EDT from Last 3 Months Results * COMPLETE BLOOD COUNT AND DIFFERENTIAL (01/12/2025 1:22 PM EDT) WBC 5.91 3.70 - 11.00 k/uL 01/12/2025 1:28 PM EDT [facility] RBC 4.86 4.20 - 6.00 m/uL 01/12/2025 1:28 PM EDT [facility] Hemoglobin 16.3 13.0 - 17.0 g/dL 01/12/2025 1:28 PM EDT [facility] Hematocrit 46.0 39.0 - 51.0 % 01/12/2025 1:28 PM EDT [facility] MCV 94.7 80.0 - 100.0 fL 01/12/2025 1:28 PM EDT [facility] MCH 33.5 26.0 - 34.0 pg 01/12/2025 1:28 PM EDT [facility] MCHC 35.4 30.5 - 36.0 g/dL 01/12/2025 1:28 PM EDT [facility] RDW-CV 12.8 11.5 - 15.0 % 01/12/2025 1:28 PM EDT [facility] Platelet Count 157 150 - 400 k/uL 01/12/2025 1:28 PM EDT [facility] MPV 10.8 9.0 - 12.7 fL 01/12/2025 1:28 PM EDT [facility] Neutrophils % 67.3 % 01/12/2025 1:28 PM EDT [facility] Abs Neut 3.98 1.45 - 7.50 k/uL 01/12/2025 1:28 PM EDT [facility] Lymphocytes % 21.7 % 01/12/2025 1:28 PM EDT [facility] Abs Lymph 1.28 1.00 - 4.00 k/uL 01/12/2025 1:28 PM EDT [facility] Monocytes % 9.0 % 01/12/2025 1:28 PM EDT [facility] Abs Josephine 0.53 <0.87 k/uL 01/12/2025 1:28 PM EDT [facility] Eosinophils % 1.4 % 01/12/2025 1:28 PM EDT [facility] Abs Eosin 0.08 <0.46 k/uL 01/12/2025 1:28 PM EDT [facility] Basophils % 0.3 % 01/12/2025 1:28 PM EDT [facility] Abs Baso <0.03 <0.11 k/uL 01/12/2025 1:28 PM EDT [facility] Immature Granulocytes % 0.3 % 01/12/2025 1:28 PM EDT [facility] Abs Immature Gran <0.03 <0.10 k/uL 025 1:28 PM EDT [facility] NRBC 0.0 /100 WBC 01/12/2025 1:28 PM EDT [facility] Absolute nRBC <0.01 <0.01 k/uL 01/12/2025 1:28 PM EDT [facility] Diff Type Auto 01/12/2025 1:28 PM EDT [facility] Blood BLOOD SPECIMEN / Unknown Venipuncture / Unknown 01/12/2025 1:22 PM EDT 01/12/2025 1:23 PM EDT us G Efren Hess MD LABORATORY Final Resul t [facility] [address] [place] [address] * EXTERNAL LAB (12/16/2024 9:16 AM EDT) Only the most recent of3 resultswithin the time period is included. us External Provider PA-C LABORATORY Final Res ult * EXTERNAL PROCEDURE (11/28/2024 1:57 PM EDT) us External Provider PA-C PROCEDURE Final Res ult * EXTERNAL IMAGING (11/28/2024 1:57 PM EDT) Anatomical Region Laterality Modality Other us External Provider PA-C RADIOLOGY Final Res ult * EXTERNAL IMAGING (11/28/2024 1:57 PM EDT) Anatomical Region Laterality Modality Other us External Provider PA-C RADIOLOGY Final Res ult from Last 3 Months Insurance [facility] MEDICARE ADVANTAGE PPO Care Teams Integration Engineer Relationship Specialty Start Date End Date Yimi Mendes II, MD [address] [place] [address] PCP - General Internal Medicine 11/28/24 Toney Kan MD [address] [place] [address] Urology 11/28/24
--- OUTSIDE RECORDS SUMMARY | 2025-02-18 12:23 | XMS_ITS | Clinical Summary ---
Author Organization [facility] Address [address] [address] [facility] [place] [address] Care Team Providers Care Jig Operator Name Role Phone Yimi Mendes MD Primary Care Provider [phone] Allergies Active Allergy Reactions Criticality Noted Date Comments Barrington Inhibitors 01/26/2023 Other Reaction(s): cough Cat Dander Shortness of breath High 10/11/2024 Medications hydroCHLOROthiazi de (HYDRODiuril) 25 MG tabletIndications :Benign essential hypertension Take 1 tablet (25 mg) by mouth in the morning. 90 tablet 3 08/16/2024 Active irbesartan (Avapro) 300 MG tabletIndications :Benign essential hypertension Take 1 tablet (300 mg) by mouth Daily 90 tablet 3 08/16/2024 Active tamsulosin (Flomax) 0.4 MG 24 hr capsule Take 0.4 mg by mouth Daily Active amLODIPine (Norvasc) 10 MG tablet Take 10 mg by mouth in the morning. 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 EHR Cmte Prostate cancer 02/13/2025 Urge incontinence 02/13/2025 Melanoma of back 09/13/2024 Morbid (severe) obesity due to excess calories 0 08/16/2024 BMI 39.0-39.9,adult 08/16/2024 Acromioclavicular joint arthritis 03/12/2023 Adjustment disorder with anxiety 03/12/2023 Carpal tunnel syndrome on both sides 03/12/2023 Diverticulosis of large intestine without hemorr daniel 03/12/2023 Hiatal hernia 03/12/2023 History of total knee replacement 03/12/2023 Lipoma of neck 03/12/2023 Nephrolithiasis 03/12/2023 Obstructive sleep apnea syndrome 03/12/2023 Arthritis of left knee 03/12/2023 Other articular cartilage disorders, right shoul parker 03/12/2023 Chronic insomnia 03/12/2023 Primary insomnia 03/12/2023 Inguinal hernia without obstruction or gangrene 03/12/2023 Umbilical hernia without obstruction and without gangrene 03/12/2023 Vitamin D deficiency 03/12/2023 Benign essential hypertension 02/16/2023 Dry eyes 01/26/2023 Epiretinal membrane (ERM) of left eye 01/26/2023 Primary localized osteoarthritis of right knee 0 12/08/2018 Resolved Problems Problem Noted Date Diagnosed Date Resolved Date Carpal tunnel syndrome of right wrist 03/12/2023 08/16/2024 Difficulty walking 03/12/2023 Arthritis of right knee 03/12/202307/28 Pain in right knee 03/12/2023 5 Pain in right shoulder 03/12/202308/16 Traumatic arthropathy of knee 03/12/2023 08/16/2024 Blepharitis of upper and low er eyelids of both eyes 01/26/2023 08/16/2024 Encounters Date Type Department Care Team Description 02/13/2025 1:00 PM EDT Office Visit [facility] [place] [address] [place] [address] Heavenly Salguero PA Benign essential hypertension (Primary Dx); Morbid (severe) obesity due to excess calories ([facility]-H[facility]); BMI 39.0-39.9,adult 02/13/2025 [facility] [address] [facility] [address] [place] [address] Heavenly Salguero PA 02/13/2025 Travel 01/12/2025 Clinisync Result Encounter [facility] External Department Unsolicited Provider, Generic External Data 12/06/2024 9:20 AM EDT Office Visit [facility] [address] [place] [address] Elysia Yee PA Capillary angioma (Primary Dx); Seborrheic keratosis; Lentigines; History of basal cell carcinoma; Personal history of malignant melanoma of skin; Lipoma of right upper extremity 12/06/2024 Bamboo flowsheet [facility] [facility] [address] [place] [address] Elysia Yee PA 12/06/2024 Travel 12/01/2024 Abstract [facility] [place] [facility] [address] [place] [id number] Yimi Mendes MD from Last 3 Months Immunizations Immunization Administration Dates Next Due Influenza, High-dose Seasona l, Quadrivalent, Preservative Free 05/04/2023,05/01/2022 Moderna Bivalent Booster Vaccination 05/22/2022 Moderna SARS-CoV-2 50mcg/0.5mL Booster Family History Medical History Relation Name Comments Cancer Father Heart disease Father Cancer Mother Heart disease Mother Melanoma Neg Hx Relation Name Status Comments Father Mother Social History Tobacco Use Types Packs/Day Years Used Date Smoking Tobacco: Never Smokeless Tobacco: Never Tobacco Cessation:Counseling Given: Not Answered Alcohol Use Standard Drinks/Week Comments Not Currently 0 (1 standard drink = 0.6 oz pur e alcohol) PHQ-2 Answer Date Recorded Patient Health Questionnaire-2 Score 0 02/13/2025 Sex and Gender Information Value Date Recorded Sex Assigned at Male 01/19/2023 12:54 PM EDT Legal Sex Male 8:34 PM EDT Gender Identity Male 01/19/2023 12:54 PM EDT Sexual Orientation Not on file Last Filed Vital Signs Vital Sign Reading Time Taken Comments Blood Pressure 112/72 02/13/2025 1:01 PM EDT Pulse 64 02/13/2025 1:01 PM EDT Temperature 37.5 C (99.5 F) 08/16/2024 1:31 PM EST Respiratory Rate 20 02/13/2025 1:01 PM EDT Oxygen Saturation 96% 02/13/2025 1:01 PM EDT Inhaled Oxygen Concentration - - Weight 109 kg (239 lb 9.6 oz) 02/13/2025 1:01 PM EDT Height 165.1 cm (5' 5 ) 02/13/2025 1:01 PM EDT Body Mass Index 39.87 02/13/2025 1:01 PM EDT Plan of Treatment Upcoming Encounters Date Type Department Care Team (Late st Contact Info) Description 03/09/2025 10:30 AM EDT Office Visit [facility] [address] [place] [address] Elysia Yee PA [address] [place] [address] 08/16/2025 1:00 PM EST Office Visit [facility] [place] [facility] [address] [place] [address] Heavenly Salguero PA [address] [place] [address] 08/25/2025 1:00 PM EST Office Visit [facility] [address] [place] [phone] Elysia Yee PA [address] [place] [address] Health Maintenance Due Date Last Done Comments CT Colonography 1951 FIT-DNA 1951 FIT 1951 FOBT 1950 Sigmoidoscopy 1951 Skin Cancer Screening 1952 Pneumococcal Vaccine: 65+ Ye ars (1 of 1 - PCV) 2001 Influenza Vaccine (#1) 2025 05/04/2023, 2021 Medicare Annual Wellness (AWV) 08/16/2025 08/16/2024 , 05/04/2023 Colonoscopy 03/13/2031 03/13/2021, 08/2014, 05/28/2015 Colorectal Cancer Screening 03/13/2031 Procedures Procedure Name Priority Date/Time Associated Diagnosis Comments [facility] CBC W AUTO DIFF BLD Routine 01/12/2025 1:22 PM EDT COLONOSCOPY Routine 03/13/2021 12:00 PM EDT from Last 3 Months or Most Recently Relevant to Health Maintenance Results * [facility] CBC W AUTO DIFF BLD (01/12/2025 1:22 PM EDT) [facility] WBC # BLD AUTO 5.91 3.70 - 11.00 k/uL [facility] RBC # BLD AUTO 4.86 4.20 - 6.00 m/uL [facility] HGB BLD-MCNC 16.3 13.0 - 17.0 g/dL [facility] HCT VFR BLD AUTO 46.0 39.0 - 51.0 % [facility] MCV RBC AUTO 94.7 80.0 - 100.0 fL [facility] MCH RBC QN AUTO 33.5 26.0 - 34.0 pg [facility] MCHC RBC AUTO-MCNC 35.4 30.5 - 36.0 g/dL [facility] RDW RBC-RTO 12.8 11.5 - 15.0 % [facility] PLATELET # BLD AUTO 157 150 - 400 k/uL [facility] PMV BLD AUTO 10.8 9.0 - 12.7 fL [facility] NEUTROPHILS/LEUK NFR BLD AUTO 67.3 % [facility] NEUTROPHILS # BLD AUTO 3.98 1.45 - 7.50 k/uL [facility] LYMPHOCYTES/LEUK NFR BLD AUTO 21.7 % [facility] LYMPHOCYTES # BLD AUTO 1.28 1.00 - 4.00 k/uL [facility] MONOCYTES/LEUK NFR BLD AUTO 9.0 % [facility] MONOCYTES # BLD AUTO 0.53 <0.87 k/uL [facility] EOSINOPHIL/LEUK NFR BLD AUTO 1.4 % [facility] EOSINOPHIL # BLD AUTO 0.08 <0.46 k/uL [facility] BASOPHILS/LEUK NFR BLD AUTO 0.3 % [facility] BASOPHILS # BLD AUTO <0.03 <0.11 k/uL [facility] IMM GRANULOCYTES/LEUK NFR BLD AUTO 0.3 % [facility] IMM GRANULOCYTES # BLD AUTO <0.03 <0.10 k/uL [facility] NRBC/100 WBC BLD-RTO 0.0 /100 WBC [facility] NRBC # BLD AUTO <0.01 <0.01 k/uL [facility] DIFFERENTIAL METHOD BLD Auto [facility] 01/12/2025 1:22 PM EDT 01/12/2025 1:23 PM EDT Narrative [facility] - 01/12/2025 1:28 PM EDT Specimen Type: BLOOD SPECIMEN Ordering Facility: [facility] Address: [address] [place] [address] Original Ordering Provider: Tip GOEL us Generic External Data Provider ALEXINC Geovanna inal Result Performing Organization Address City/State/[facility] Co de Phone Number [facility] [address] [place] [address] * Colonoscopy (03/13/2021 12:00 PM EDT) Anatomical Region Laterality Modality Endoscopy 03/13/2021 12:0 0 PM EDT Narrative 03/13/2021 12:00 PM EDT PERFORMED AT [facility] LOCATION:[id number] diverticulosis Procedure Note CONVERSION, GENERIC - 12/10/2022 PERFORMED AT [facility] LOCATION:[id number] diverticulosis us Yimi Mendes MD ENDOSCOPY PROCEDURE ORDERABLES Final Result from Last 3 Months or Most Recently Relevant to Health Maintenance Insurance [employer] MEDICARE Care Teams Jig Operator Relationship Specialty Start Date End Date Yimi Mendes MD [address] [address] PCP - General Internal Medicine 01/26/23
--- OUTSIDE RECORDS SUMMARY | 2025-02-18 12:23 | XMS_ITS | Clinical Summary ---
Author Organization [facility] Address [address] [place] [address] Phone Care Team Providers Care Fairground Operator Name Role Phone Yimi Mendes MD Primary Care Provider [phone] Elysia Yee PA-C Unavailable Allergies Active Allergy Reactions Criticality Noted Date Comments Barrington Inhibitors Cough 01/26/2023 Other Reaction(s): cough Cat Dander Shortness of breath High 10/11/2024 Medications amLODIPine (Norvasc) 10 mg tablet Take 1 tablet (10 mg) by mouth once daily. Active amoxicillin-pot clavulanate (Augmentin) 875-125 mg tablet Take 1 tablet by mouth 2 times daily (morning and late afternoon). 08/16/2024 Active benzonatate (Tessalon) 200 mg capsule Take 1 capsule (200 mg) by mouth. 08/16/2024 Active ciprofloxacin (Cipro) 500 mg tablet Take 1 tablet (500 mg) by mouth every 12 hours. 03/14/2024 Active irbesartan (Avapro) 300 mg tablet Take 1 tablet (300 mg) by mouth once daily. 08/16/2024 Active hydroCHLOROthiaz max (HYDRODiuril) 25 mg tablet Take 1 tablet (25 mg) by mouth once daily in the morning. Take before meals. 08/16/2024 Active tamsulosin HCl (FLOMAX ORAL) Take by mouth once daily. Active Active Problems Problem Noted Date Diagnosed Date Melanoma of back (Multi) 09/13/2024 Cancer Staging:Pathologic:Stage IB(pT2a, pN0, cM0) - Signed by Kaden Bueno MD on 10/10/2024 Social History Tobacco Use Types Packs/Day Years Used Date Smoking Tobacco: Never Passive Smoke Exposure: Past Smokeless Tobacco: Never Alcohol Use Standard Drinks/Week Comments Yes 0 (1 standard drink = 0.6 oz pur e alcohol) Occasional PHQ-2 Answer Date Recorded Patient Health Questionnaire-2 Score 0 10/11/2024 Sex and Gender Information Value Date Recorded Sex Assigned at Not on file Legal Sex Male 2:39 PM EST Gender Identity Not on file Sexual Orientation Not on file Last Filed Vital Signs Vital Sign Reading Time Taken Comments Blood Pressure 154/87 10/11/2024 12:26 PM EDT Pulse 88 10/11/2024 12:26 PM EDT Temperature 36.2 C (97.2 F) 10/11/2024 12:26 PM EDT Respiratory Rate 18 10/11/2024 12:26 PM EDT Oxygen Saturation 97% 10/11/2024 12:26 PM EDT Inhaled Oxygen Concentration - - Weight 105 kg (232 lb 3.2 oz) 10/11/2024 12:26 P M EDT Height 165.1 cm (5' 5 ) 09/26/2024 7:28 AM EST Body Mass Index 38.64 09/26/2024 7:28 AM EST Plan of Treatment Health Maintenance Due Date Last Done Comments CT Colonography 1951 FIT-DNA (Cologuard) 1951 FIT 1951 Lipid Panel 1951 Sigmoidoscopy 1951 Skin Cancer Screening 1951 Welcome to Medicare Visit 1950 Hepatitis C Screening 1969 DTaP/Tdap/Td Vaccines (1 - Tdap) 1973 Pneumococcal Vaccine (1 of 1 - PCV) 2001 Zoster Vaccines (1 of 2) 2001 COVID-19 Vaccine ( - season) 2024 05/22/2022, 07/25/2021, 10/26/2020, Additional history exists Influenza Vaccine (#1) 2025 05/04/2023, 2021 RSV High Risk: (Elderly (60+) or Population) (1 - 1-dose 75+ series) 2026 Colonoscopy 03/13/2031 03/13/2021, 03/13/2021 Colorectal Cancer Screening 03/13/2031 HIB Vaccines Aged Out No longer eligi ble based on patient's age to complete this topic HPV Vaccines Aged Out No longer eligi ble based on patient's age to complete this topic Hepatitis A Vaccines Aged Out No long er eligible based on patient's age to complete this topic Hepatitis B Vaccines Aged Out No long er eligible based on patient's age to complete this topic IPV Vaccines Aged Out No longer eligi ble based on patient's age to complete this topic Meningococcal Vaccine Aged Out No purnima chris eligible based on patient's age to complete this topic Rotavirus Vaccines Aged Out No longer eligible based on patient's age to complete this topic Insurance [employer] MEDICARE [employer] MEDICARE Advance Directives For more information, please contact: [phone] (Available ) * Full Code (Latest Code Status on File) Date Activated Date Inactivated Comments 09/26/2024 7:19 AM Question Answer Comments Plan of Care: Code Status Discussion Not Compl eted Decision Maker: Provider Rationale: Patient condition does not warra nt discussion Care Teams Fairground Operator Relationship Specialty Start Date End Date Yimi Mendes MD [address] [place] [address] PCP - General Internal Medicine 08/30/24 Elysia Yee PA-C [address] [facility] [address] [place] [address] Physician [place] Machine Operator Orthopaedic Surgery 08/30/24
--- OUTSIDE RECORDS SUMMARY | 2025-02-18 12:23 | XMS_ITS | Encounter Summary ---
Author Organization [facility] Address [address] [place] [address] Care Team Providers Care Boat Puller Name Role Phone Yimi Mendes MD Primary Care Provider [phone] Encounter Details Date Type Department Care Team ([facility] Contact Info) Description 08/17/2024 Abstract [facility] [address] [place] [address] Yimi Mendes MD [address] [place] [address] Social History Tobacco Use Types Packs/Day Years Used Date Smoking Tobacco: Never Smokeless Tobacco: Never Alcohol Use Standard Drinks/Week Comments Not Currently 0 (1 standard drink = 0.6 oz pur e alcohol) PHQ-2 Answer Date Recorded Patient Health Questionnaire-2 Score 0 08/16/2024 Sex and Gender Information Value Date Recorded Sex Assigned at Male 01/19/2023 12:54 PM EDT Legal Sex Male 8:34 PM EDT Gender Identity Male 01/19/2023 12:54 PM EDT Sexual Orientation Not on file documented as of this encounter Plan of Treatment Upcoming Encounters Date Type Department Care Team ([facility] Contact Info) Description 03/09/2025 10:30 AM EDT Office Visit [facility] [address] [place] [address] Elysia Yee PA [address] [place] [address] 08/16/2025 1:00 PM EST Office Visit [facility] [address] [place] [address] Heavenly Salguero PA [address] [place] [address] 08/25/2025 1:00 PM EST Office Visit [facility] [place] [facility] [address] [place] [address] Elysia Yee PA [address] [place] [address] documented as of this encounter Visit Diagnoses Not on filedocumented in this encounter Additional Health Concerns Assessment Noted Time PHQ-9 Depression Total Score: 0 08/16/19 25 1:00 PM EST documented as of this encounter Care Teams Boat Puller Relationship Specialty Start Date End Date Yimi Mendes MD [address] [facility] [address] [place] [address] PCP - General Internal Medicine 01/26/23 documented as of this encounter
--- OUTSIDE RECORDS SUMMARY | 2025-02-18 12:23 | XMS_ITS | Encounter Summary ---
Author Organization [facility] Address [address] [place] [address] Phone Care Team Providers Care Bulk Clerk Name Role Phone Yimi Mendes MD Primary Care Provider [phone] Elysia Yee PA-C Unavailable [phone] Encounter Details Date Type Department Care Team (Late st Contact Info) Description 09/02/2024 Lab Requisition [facility] [place] [address] [facility] [address] [place] [id number] [place] [address] Department of Surgery-[place], [place] [id number] Disorder of the skin and subcutaneous tissue, unspecified Social History Tobacco Use Types Packs/Day Years Used Date Smoking Tobacco: Never Assessed Sex and Gender Information Value Date Recorded Sex Assigned at Not on file Legal Sex Male 2:39 PM EST Gender Identity Not on file Sexual Orientation Not on file documented as of this encounter Plan of Treatment Not on file documented as of this encounter Procedures Procedure Name Priority Date/Time Associated Diagnosis Comments DERMPATH CONSULT Routine 09/02/2024 12:3 1 PM EST Disorder of the skin and subcutaneous tissue, unspecified documented in this encounter Results * Dermpath Consult (09/02/2024 12:31 PM EST) Case Report Dermatopathology Report Case: [id number] Authorizing Provider: Kaden Bueno MD Collected: 09/02/2024 1231 Ordering Location: [facility] Received: 09/02/2024 1231 [facility] Pathologist: Maryam David MD Specimen: OUTSIDE BLOCK(S)/SLIDE(S), 1 SLIDE, [facility] #[id number] (BX: 08/23/2024) 2:55 PM EST [facility] FINAL DIAGNOSIS 1 SLIDE, [facility] #[id number] (BX: 08/23/2024) SKIN, MID UPPER BACK, SHAVE BIOPSY: MALIGNANT MELANOMA, BRESLOW THICKNESS AT LEAST 2.0 MM, PRESENT ON THE DEEP MARGIN, SEE NOTE. Note: Microscopic examination reveals nests and cords of atypical melanocytes in the dermis with areas of a lymphocytic infiltrate. The specimen lacks significant epidermal involvement which raises the possibility of a metastatic melanoma. If it is a primary dermal melanoma it would have features as outlined in the synoptic report. Electronically signed out by Maryam David MD 2:55 PM EST [facility] at 1455 EST Case Summary Report MELANOMA OF THE SKIN: Biopsy MELANOMA OF THE SKIN: BIOPSY - A 8th Edition - Protocol posted: 10/16/2021 SPECIMEN Procedure: Biopsy, shave Specimen Laterality: Not specified TUMOR Tumor Site: Skin of trunk: Mid upper back Histologic Type: Primary dermal Maximum Tumor (Breslow) Thickness (Millimeters): At least: 2.0 mm : Broadly transected on the deep margin. Ulceration: Not identified Anatomic (Sukhdeep) Level: At least level: IV : Broadly transected on the deep margin. Mitotic Rate: 2 mitoses per mm2 Microsatellite(s) : Not identified Lymphovascular Invasion: Not identified Neurotropism: Not identified Tumor-Infiltratin g Lymphocytes: Present, nonbrisk Tumor Regression: Not identified MARGINS: Margin Status for Invasive Melanoma: Invasive melanoma present at margin Margin(s) Involved by Invasive Melanoma: Deep Margin Status for Melanoma in situ: All margins negative for melanoma in situ PATHOLOGIC STAGE CLASSIFICATION (pTNM, AJCC 8th Edition): pT Category: pT2a 2:55 PM EST [facility] Clinical History SHAVE TANGENTIAL/ NEOPLASM OF UNSPECIFIED BEHAVIOR OF BONE, SOFT TISSUE, AND SKIN. MELANOMA VS. BCC VS. OTHER. 0.9X0.7CM VIOLACEOUS PAPULE. 2:55 PM EST [facility] Specimen Description A. OUTSIDE BLOCK(S)/SLIDE(S). Received for consultation from [facility] is one slide labeled #[id number] (BX: 08/23/2024) along with the corresponding pathology report. 2:55 PM EST [facility] Outside Materials (OUTSIDE BLOCK(S)/SLIDE(S) ) 09/02/2024 12:31 PM EST 09/02/2024 12:31 PM EST us Kaden Bueno MD LAB PATHOLOGY ORDERABLES Anna morocho Result [facility] [address] [facility] [address] [place] [address] documented in this encounter Visit Diagnoses Diagnosis Disorder of the skin and subcutaneous tissue, unspecified documented in this encounter Care Teams Bulk Clerk Relationship Specialty Start Date End Date Yimi Mendes MD [address] [facility] [address] [place] [address] PCP - General Internal Medicine 08/30/24 Elysia Yee PA-C [address] [facility] [address] [place] [address] Physician Zigzag Elastic Attacher Orthopaedic Surgery 08/30/24 documented as of this encounter
--- OUTSIDE RECORDS SUMMARY | 2025-02-18 12:23 | XMS_ITS | Encounter Summary ---
Author Organization [facility] Address [address] [place] [address] Care Team Providers Care Luggage Maker Name Role Phone Yimi Mendes MD Primary Care Provider [phone] Encounter Details Date Type Department Care Team ([facility] Contact Info) Description 09/20/2024 Abstract [facility] [address] [place] [address] Yimi Mendes MD [address] [place] [address] Social History Tobacco Use Types [...] Upcoming Encounters Date Type Department Care Team ([facility] Contact Info) Description 03/09/2025 10:30 AM EDT Office Visit [facility] [address] [place] [address] Elysia Yee PA [address] [place] [address] 08/16/2025 1:00 PM EST Office Visit [facility] [address] [place] [address] Heavenly Salguero PA [address] [address] [place] [address] 08/25/2025 1:00 PM EST Office Visit [facility] [place] [facility] [address] [place] [address] Elysia Yee PA [address] [place] [address] documented as of this encounter Visit Diagnoses Not on filedocumented in this encounter Additional Health Concerns Assessment Noted Time PHQ-9 Depression Total Score: 0 08/16/19 25 1:00 PM EST documented as of this encounter Care Teams Luggage Maker Relationship Specialty Start Date End Date Yimi Mendes MD [address] [facility] 110 [place] [address] PCP - General Internal Medicine 01/26/23 documented as of this encounter
--- OUTSIDE RECORDS SUMMARY | 2025-02-18 12:23 | XMS_ITS | Clinical Summary ---
Author Organization [facility] [employer] Address [id number] [address] [place] [address] Care Team Providers Care Marketing Analytics Analyst Name Role Phone Yimi Mendes MD Primary Care Provider [phone] Allergies No known active allergies Medications amLODIPine (NORVASC) 10 mg tablet Take 10 mg by mouth daily. Active irbesartan (AVAPRO) 300 mg tablet Take 300 mg by mouth nightly. Active diclofenac (VOLTAREN) 50 mg EC tablet Take 50 mg by mouth 3 (three) times a day. Active Active Problems Problem Noted Date Diagnosed Date Primary localized osteoarthritis of right knee 0 12/08/2018 Social History Tobacco Use Types Packs/Day Years Used Date Smoking Tobacco: Never Smokeless Tobacco: Never Alcohol Use Standard Drinks/Week Comments Yes 0 (1 standard drink = 0.6 oz pur e alcohol) beer daily Childcare Answer Date Recorded Childcare Unknown 01/06/2019 Employment Answer Date Recorded Employment Unknown 01/06/2019 Purpose - Life Answer Date Recorded Purpose and direction in life Unknown Sex and Gender Information Value Date Recorded Sex Assigned at Not on file Legal Sex Male 10:35 AM EDT Gender Identity Not on file Sexual Orientation Not on file Last Filed Vital Signs Vital Sign Reading Time Taken Comments Blood Pressure 131/78 12/09/2018 7:11 AM EDT Pulse 52 12/09/2018 7:11 AM EDT Temperature 36.5 C (97.7 F) 12/09/2018 7:11 AM EDT Respiratory Rate 14 12/09/2018 7:11 AM EDT Oxygen Saturation 99% 12/09/2018 7:11 AM EDT Inhaled Oxygen Concentration - - Weight 99.8 kg (220 lb 0.3 oz) 12/08/2018 12:57 PM EDT Height 167.6 cm (5' 5.98 ) 12/08/2018 12:57 PM E DT Body Mass Index 35.53 12/08/2018 12:57 PM EDT Plan of Treatment Health Maintenance Due Date Last Done Comments Depression Screening 1963 Tobacco Screening 1963 Adult BMI Screening 1969 DTaP,Tdap and Td Vaccines (1 - Tdap) 1970 Zoster (Shingles) Vaccine (1 of 2) 2001 Fall Risk Screening 2016 Influenza Vaccine 03/27/2025 Medical Devices Implanted Type Area Director Case Device Identifier Shelf Expiration Date Model / Serial / Lot Cmnt Bn Bio 40gm Rpl [id number]+ [id number] - Sna - [id number] Implanted:Qty: 2 on 12/08/2018 by Deric Garrett DO at [facility] Cement Right: Knee [employer] 12/24/2022 [id number] / NA / [id number] Knee Off [id number](100 mm) Rpl [id number] + [id number] - Sna - [id number] Implanted:Qty: 1 on 12/08/2018 by Deric Garrett DO at [facility] Orthopedic Implant Right: Knee [employer] 08/26/2027-5988-020 -11 / NA / [id number] Xtn Stm 30mm 75mm 15mm Kn Tib Rpl [id number] - Sna - [id number] Implanted:Qty: 1 on 12/08/2018 by Deric Garrett DO at [facility] Orthopedic Implant Right: Knee [employer] 12/25/2027-5988-012 -15 / NA / [id number] Cmpt Fem G Kn Rt 76.5x70.5mm - Sna - [id number] Implanted:Qty: 1 on 12/08/2018 by Deric Garrett DO at [facility] Orthopedic Implant Right: Knee [employer] 10/25/2027 [id number] -92 / NA / [id number] Ins Artc 5-6 G-H 17mm Kn Fx Rpl [id number] - Sna - [id number] Implanted:Qty: 1 on 12/08/2018 by Deric Garrett DO at [facility] Orthopedic Implant Right: Knee [employer] 07/26/2022-5962-042 -17 / NA / [id number] Cmpt Ptlr 32mm Nxgn Alply Rpl [id number] + [id number] + [id number] - Sna - [id number] Implanted:Qty: 1 on 12/08/2018 by Deric Garrett DO at [facility] Orthopedic Implant Right: Knee [employer] 08/26/2026-5972-065 -32 / NA / [id number] Plt Tib [id number] Nxgn Kn Cmnt Rpl [id number] + [id number] - Sna - [id number] Implanted:Qty: 1 on 12/08/2018 by Deric Garrett DO at [facility] Plate Right: Knee [employer] 03/26/2028-5980-047 -02 / NA / [id number] Explanted Type Area Director Case Device Identifier Shelf Expiration Date Model / Serial / Lot Scr Gd 48mm Qd-Spr Hex Hd Mis - Sna - [id number] Explanted:Qty: 2 on 12/08/2018 by Deric Garrett DO at [facility] Screw Right: Knee [employer] 10/24/2028-5983-040 -48 / NA / [id number] Scr Gd 48mm Qd-Spr Hex Hd Mis - Sna - [id number] Explanted:Qty: 1 on 12/08/2018 by Deric Garrett DO at [facility] Screw Right: Knee [employer] 10/24/2028-5983-040 -48 / NA / [id number] Scr Gd 48mm Qd-Spr Hex Hd Mis - Sna - [id number] Explanted:Qty: 1 on 12/08/2018 by Deric Garrett DO at [facility] Screw Right: Knee [employer] 04/25/2028-5983-040 -48 / NA / [id number] Insurance [employer] MEDICARE Advance Directives * Full Code (Latest Code Status on File) Date Activated Date Inactivated Comments 12/08/2018 2:02 PM 12/09/2018 4:20 PM Care Teams Marketing Analytics Analyst Relationship Specialty Start Date End Date Yimi Mendes MD [address] [facility] [address] [place] [address] PCP - General Internal Medicine 11/17/18
--- OUTSIDE RECORDS SUMMARY | 2025-02-18 12:23 | XMS_ITS | Encounter Summary ---
Author Organization [facility] Address [address] [place] [address] Care Team Providers Care Cereal Supervisor Name Role Phone Yimi Mendes MD Primary Care Provider [phone] Encounter Details Date Type Department Care Team ([facility] Contact Info) Description 12/01/2024 Abstract [facility] [address] [place] [address] Yimi Mendes MD [address] [place] [address] Social History Tobacco Use Types [...] Upcoming Encounters Date Type Department Care Team ([facility] Contact Info) Description 03/09/2025 10:30 AM EDT Office Visit [facility] [address] [place] [address] Elysia Yee PA [address] [place] [address] 08/16/2025 1:00 PM EST [facility] [address] [place] [address] Heavenly Salguero PA [address] [place] [address] 08/25/2025 1:00 PM EST Office Visit [facility] [place] [facility] [address] [place] [address] Elysia Yee PA [address] [place] [address] documented as of this encounter Visit Diagnoses Not on filedocumented in this encounter Additional Health Concerns Assessment Noted Time PHQ-9 Depression Total Score: 0 08/16/19 25 1:00 PM EST documented as of this encounter Care Teams Cereal Supervisor Relationship Specialty Start Date End Date Yimi Mendes MD [address] [facility] [address] [place] [address] PCP - General Internal Medicine 01/26/23 documented as of this encounter
--- OUTSIDE RECORDS SUMMARY | 2025-02-18 12:23 | XMS_ITS | Encounter Summary ---
Author Organization [facility] Address [address] [facility] [place] [address] Care Team Providers Care Barrow Worker Helper Name Role Phone Yimi Mendes MD Primary Care Provider [phone] Encounter Details Date Type Department Care Team ([facility] Contact Info) Description 02/13/2025 Bamboo flowsheet [facility] [place] [facility] [address] [place] [address] Heavenly Salguero PA [address] [place] [address] Social History Tobacco Use Types Packs/Day Years [...] Upcoming Encounters Date Type Department Care Team ([facility] Contact Info) Description 03/09/2025 10:30 AM EDT Office Visit [facility] [facility] [address] [place] [address] Elysia Yee PA [address] [place] [address] 08/16/2025 1:00 PM EST Office Visit [facility] [place] [facility] [address] [place] [address] Heavenly Salguero PA [address] [facility] 110 [place] [address] 08/25/2025 1:00 PM EST Office Visit [facility] [facility] [address] [facility] [address] [place] [address] Elysia Yee PA [address] [facility] [address] [place] [address] documented as of this encounter Visit Diagnoses Not on filedocumented in this encounter Additional Health Concerns Assessment Noted Time PHQ-9 Depression Total Score: 0 08/16/19 25 1:00 PM EST documented as of this encounter Care Teams Barrow Worker Helper Relationship Specialty Start Date End Date Yimi Mendes MD [address] [facility] [address] [place] [address] PCP - General Internal Medicine 01/26/23 documented as of this encounter
--- OUTSIDE RECORDS SUMMARY | 2025-02-18 12:23 | XMS_ITS | Encounter Summary ---
Author Organization [facility] Address [address] [place] [address] Care Team Providers Care Protein Purification Scientist Name Role Phone Yimi Mendes MD Primary Care Provider [phone] Encounter Details Date Type Department Care Team (Late Contact Info) Description 05/05/2023 Abstract [facility] [place] [facility] [address] [place] [address] Yimi Mendes MD [address] [place], [place] [address] Social History Tobacco Use Types Packs/Day Years Used Date Smoking Tobacco: Never Smokeless Tobacco: Never PHQ-2 Answer Date Recorded Patient Health Questionnaire-2 Score 0 05/04/2023 Sex and Gender Information Value Date Recorded Sex Assigned at Male 01/19/2023 12:54 PM EDT Legal Sex Male 8:34 PM EDT Gender Identity Male 01/19/2023 12:54 PM EDT Sexual Orientation Not on file documented as of this encounter Plan of Treatment Upcoming Encounters Date Type Department Care Team ([facility] Contact Info) Description 03/09/2025 10:30 AM EDT Office Visit [facility] [address] [place] [address] Elysia Yee PA [address] [place] [address] 08/16/2025 1:00 PM EST Office Visit [facility] [place] [facility] [address] [place] [address] Heavenly Salguero PA [address] [place] [address] 08/25/2025 1:00 PM EST Office Visit [facility] [address] [facility] [address] [place] [address] Elysia Yee PA [address] [facility] [address] [place] [address] documented as of this encounter Visit Diagnoses Not on filedocumented in this encounter Care Teams Protein Purification Scientist Relationship Specialty Start Date End Date Yimi Mendes MD [address] [facility] 110 [place] [address] PCP - General Internal Medicine 01/26/23 documented as of this encounter
--- OUTSIDE RECORDS SUMMARY | 2025-02-18 12:23 | XMS_ITS | Encounter Summary ---
Author Organization [facility] Address [address] [facility] [place] [address] Care Team Providers Care Tool Clerk Name Role Phone Yimi Mendes MD Primary Care Provider [phone] Reason for Visit * Reason Comments Med Refill Encounter Details Date Type Department Care Team (Late Contact Info) Description 02/16/2023 Refill [facility] [place] [facility] [address] [facility] [address] [place] [address] Heavenly Salguero PA [address] [facility] [address] [place] [address] Benign essential hypertension (Primary Dx) Social History Tobacco Use Types Packs/Day Years Used Date Smoking Tobacco: Never Assessed Sex and Gender Information Value Date Recorded Sex Assigned at Male 01/19/2023 12:54 PM EDT Legal Sex Male 8:34 PM EDT Gender Identity Male 01/19/2023 12:54 PM EDT Sexual Orientation Not on file documented as of this encounter Miscellaneous Notes * Telephone Encounter - Evelyn Roldan - 02/17/2023 10:03 AM EDT Pt scheduled * Telephone Encounter - KOSTA Burrows - 02/16/2023 5:34 PM EDT Patient is overdue for a follow up with Dr. Mendes. Please help him get set up with him when Dr. Mendes if back in the office. Med sent. documented in this encounter Plan of Treatment Upcoming Encounters Date Type Department Care Team (Late st Contact Info) Description 03/09/2025 10:30 AM EDT Office Visit [facility] [facility] [address] [place] [address] Elysia Yee PA [address] [place] [address] 08/16/2025 1:00 PM EST Office [facility] [place] [facility] [address] [place] [address] Heavenly Salguero PA [address] [place] [address] 08/25/2025 1:00 PM EST Office Visit [facility] [facility] [address] [place] [address] Elysia Yee PA [address] [place] [address] documented as of this encounter Visit Diagnoses Diagnosis Benign essential hypertension- Primary Essential hypertension, benign documented in this encounter Care Teams Tool Clerk Relationship Specialty Start Date End Date Yimi Mendes MD [address] [place] [address] PCP - General Internal Medicine 01/26/23 documented as of this encounter
--- OUTSIDE RECORDS SUMMARY | 2025-02-18 12:23 | XMS_ITS | Encounter Summary ---
Author Organization [facility] Address [address] [place] [address] Care Team Providers Care Associate Trainer Name Role Phone Yimi Mendes MD Primary Care Provider [phone] Encounter Details Date Type Department Care Team (Latest Contact Info) Description 02/13/2025 Travel Social History Tobacco Use Types Packs/Day [...] on file documented as of this encounter Functional Status * Over the [...] -2 Score 0 02/13/2025 12:58 PM EDT iMsty Ashley L PN documented as of this encounter Plan of Treatment Upcoming Encounters Date Type Department Care Team (Late st Contact Info) Description 03/09/2025 10:30 AM EDT Office Visit [facility] [address] [place] [address] Elysia Yee PA [address] [place] [address] 08/16/2025 1:00 PM EST Office Visit [facility] [place] [facility] [address] [place] [address] Heavenly Salguero PA [address] [place] [address] 08/25/2025 1:00 PM EST Office Visit [facility] [place] [facility] [address] [place] [address] Elysia Yee PA [address] [place] [address] documented as of this encounter Visit Diagnoses Not on filedocumented in this encounter Additional Health Concerns Assessment Noted Time PHQ-9 Depression Total Score: 0 08/16/19 25 1:00 PM EST documented as of this encounter Care Teams Associate Trainer Relationship Specialty Start Date End Date Yimi Mendes MD [address] [facility] [address] [place] [address] PCP - General Internal Medicine 01/26/23 documented as of this encounter
--- OUTSIDE RECORDS SUMMARY | 2025-02-18 12:23 | XMS_ITS | Encounter Summary ---
Author Organization [facility] Address [address] [place] [address] Care Team Providers Care Spare Person Name Role Phone Yimi Mendes MD Primary Care Provider [phone] Encounter Details Date Type Department Care Team ([facility] Contact Info) Description 03/15/2024 Orders Only [facility] [place] [facility] [address] [place] [address] Unallocated, Noms Provider, [address] [place], [place] [id number] Social History Tobacco Use Types Packs/Day Years [...] Upcoming Encounters Date Type Department Care Team ([facility] Contact Info) Description 03/09/2025 10:30 AM EDT Office Visit [facility] [address] [place] [address] Elysia Yee PA [address] [place] [address] 08/16/2025 1:00 PM EST Office Visit [facility] [place] [facility] [address] [place] [address] Heavenly Salguero PA [address] [place] [address] 08/25/2025 1:00 PM EST Office Visit [facility] [address] [place] [address] Elysia Yee PA [address] [place] [address] documented as of this encounter Procedures Procedure Name Priority Date/Time Associated Diagnosis Comments ELECTROCARDIOGRAM REPORT Routine 024 9:02 AM EDT documented in this encounter Results * Electrocardiogram Report (03/15/2024 9:02 AM EDT) us Noms Provider Unallocated MD IN CLINIC/BEDSIDE O RDERABLES Final Result documented in this encounter Visit Diagnoses Not on filedocumented in this encounter Care Teams Spare Person Relationship Specialty Start Date End Date Yimi Mendes MD [address] [facility] [address] [place] [address] PCP - General Internal Medicine 01/26/23 documented as of this encounter
--- OUTSIDE RECORDS SUMMARY | 2025-02-18 12:23 | XMS_ITS | Encounter Summary ---
Author Organization [facility] Address [address] [facility] [place] [address] Care Team Providers Care Coper Hand Name Role Phone Yimi Mendes MD Primary Care Provider [phone] Encounter Details Date Type Department Care Team (Late st Contact Info) Description 08/16/2024 Abstract [facility] [place] [facility] [address] [place] [address] Yimi Mendes MD [address] [facility] [address] [place] [address] Social History Tobacco Use Types Packs/Day Years [...] pleasure in doing things Not at all 08/16/2024 1:00 PM EST Misty Ashley LP N Feeling down, depressed, or hopeless Not at all 08/16/2024 1:00 PM EST Misty Ashley LP N Patient Health Questionnaire -2 Score 0 08/16/2024 1:00 PM EST Misty Ashley LP N * Question Answer Date of Assessment Author Trouble falling or staying asleep, or sleeping too much Not at all 08/16/2024 1:00 PM Suki Porter LPN Feeling tired or having mariella le energy Not at all 08/16/2024 1:00 PM Misty Porter LP N Poor appetite or overeating Not at all 08/16/2024 1: 00 PM Misty Porter LPN Feeling bad about yourself - or that you are a failure or have let yourself or your family down Not at all 08/16/2024 1:00 PM Misty Porter LPN Trouble concentrating on thi ngs, such as reading the newspaper or watching television Not at all 08/16/2024 1:00 PM Misty Porter LP N Moving or speaking so slowly that other people could have noticed? Or the opposite - being so fidgety or restless that you have been moving around a lot more than usual. Not at all 08/16/2024 1:00 PM Misty Porter LP N Thoughts that you would be better off or hurting yourself in some way Not at all 08/16/2024 1:00 PM Misty Porter L PN Patient Health Questionnaire -9 Score 0 08/16/2024 1:00 PM Misty Porter LP N documented as of this encounter Plan of Treatment Upcoming Encounters Date Type Department Care Team (Late st Contact Info) Description 03/09/2025 10:30 AM EDT Office Visit [facility] [address] [place] [address] Elysia Yee PA [address] [place] [address] 08/16/2025 1:00 PM EST Office Visit [facility] [place] [facility] [address] [place] [id number] Heavenly Salguero PA [address] [place] [address] 08/25/2025 1:00 PM EST Office Visit [facility] [address] [place] [address] Elysia Yee PA [address] [place] [address] documented as of this encounter Visit Diagnoses Not on filedocumented in this encounter Additional Health Concerns Assessment Noted Time PHQ-9 Depression Total Score: 0 08/16/19 1:00 PM EST documented as of this encounter Care Teams Coper Hand Relationship Specialty Start Date End Date Yimi Mendes MD [address] [facility] [address] [place] [address] PCP - General Internal Medicine 01/26/23 documented as of this encounter
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
--- NOTE | 2025-02-18 12:44 | PC.NURSE ---
pt presents with bilat forearm bites from dog. pt states it is his dog, this has happened once before. states the dog is very protective of his and was messing around with her last night when dog started to bite him.. dog is immunized
[2025-02-18] MEDS: ADACEL DIPH,PERTUSS(ACELL),TET VAC/PF 0.5 ML ADULT SYRINGE IM (12:45)
== END 2025-02-18 12:52 | disposition home or self-care (01) ==
PROVIDERS: Emergency Provider Emergency Medicine; PCP Internal Medicine
DX: S50.872A Other superficial bite of left forearm, initial encounter (principal); S50.871A Other superficial bite of right forearm, initial encounter; S40.871A Other superficial bite of right upper arm, initial encounter; Z23 Encounter for immunization
CPT/HCPCS: 90471; 90715; 99284

== ENCOUNTER 2025-02-28 09:58 | Outpatient (OUT) | payer MEDICARE, SELFPAY ==
[2025-02-28 11:38] LABS: Prostate Specific Antigen Dx 2.52 ng/mL (<=4.00)
== END 2025-02-28 09:59 | disposition home or self-care (01) ==
LOC: LAB 10:00
PROVIDERS: PCP Internal Medicine; Visit Provider Radiology Radiation Oncology
DX: C61 Malignant neoplasm of prostate (principal)
CPT/HCPCS: 36415; 84153